=== PATIENT | female | born 1940 | race Hispanic/Latino ===

== ENCOUNTER 2020-02-22 14:58 | Inpatient (IN) | payer MEDICARE, OTHER ==
[~2020-02-22] VITALS: Ht 157.5 cm; Wt 51.1 kg
--- OUTSIDE RECORDS SUMMARY | 2020-02-22 15:01 | XMS REPORT ---
Author Author [facility] Address Unknown Phone Unavailable Care Team Providers Care Chart Reader Name Role Phone Unavailable Unavailable Payers Payer Name Policy Type Policy Number Effective Date Expiration Date Problems This patient has no known problems. Allergies, Adverse Reactions, Alerts Allergy Name Allergy Type Status Severity Reaction(s) Onset Date Inactive Date Treating Clinician Comments No Known Allergies DA Active U 2020-02-10 00:00:00 No Known Allergies DA Active U 2019-07-04 00:00:00 Medications This patient has no known medications. Encounters Start Date/Time End Date/Time Encounter Type Admission Type Attending Clinicians Care Facility Care Department Encounter ID 2019-09-17 18:35:00 2019-09-17 18:35:00 Outpatient E [facility] [id number] 2019-07-31 21:30:00 2019-07-31 21:30:00 Emergency E [facility] 7500 2019-06-21 23:47:00 2019-06-21 23:47:00 Outpatient E [facility] 7502 2019-04-03 22:44:00 2019-04-03 22:44:00 Outpatient [facility] [id number] 2019-04-04 01:06:00 2019-04-03 22:38:00 [id number] 2019-04-03 21:06:00 2019-04-03 21:06:00 Emergency E [facility] 7500 Results Test Description Test Time Test Comments Text Results Atomic Results Result Comments - XR ABDOMEN 1V (KUB) 2020-02-10 14:51:00 FAX: Melly Smallwood DO Rupert: St: PRE Name: NATALYA LUNA [facility] : 1940 Age/S: 79/F [address] [place] [address] Unit #: [id number] Loc: ALEXIS2 [place] [address] Phys: Melly Smallwood DO Acct: [id number] Dis Date: Status: PRE ER PHONE #: [phone] Exam Date: 02/10/2020 1441 FAX #: [phone] Reason: peg tube placement. with barium EXAMS: CPT CODE: [id number] XR ABDOMEN 1V (KUB) 15884 Patient: NATALYA LUNA. : 1940; Age: 79 years; Gender: Female. MR: [id number]. Ordering physician: Melly Smallwood DO. Abdomen AP. HISTORY: PEG tube placement, position checked. COMPARISON: None. FINDINGS: Single frontal view of the abdomen was obtained status post administration of contrast through placed PEG tube. PEG tube balloon overlies superior/proximal aspect of stomach. Administered contrast also noted superior/proximal aspect of stomach. No extraluminal contrast extravasation to suggest PEG tube is external to the gastric lumen. Constipation. No bowel obstruction. IMPRESSION: 1. PEG tube is within the proximal/superior aspect of stomach. 2. Constipation. SL: LYUBOV at 1457 Reported and signed by: Chris Hylton M.D. CC: Melly Smallwood DO Technologist: RT Wu(R); RT Isabel(R) Trnvard Date/Time/By: 02/10/2020 (2148) : By: [email or web address] Orig Print D/T: S: 02/10/2020 (2215) PAGE 1 Signed Report RENAL FUNCTION PANEL 2019-07-14 05:55:00 SODIUM (test code=NA) 146 MMOL/L 136-143 POTASSIUM (test code=K) 4.5 MMOL/L 3.5-5.1 CHLORIDE (test code=CL) 107 MMOL/L 98-107 CARBON DIOXIDE (test code=CO2) 28 mmol/L 24-31 GLUCOSE (test code=GLU) 143 mg/dL 70-104 BLOOD UREA NITROGEN (test code=BUN) 31.3 MG/DL 7.0-21.0 GLOMERULAR FILTRATION RATE (test code=GFR) >=60 max estimate >60 The estimated glomerular filtration rate is computed usingpatient race, age (>18), sex, and serum creatinine. If anyof the needed data elements are missing the Laboratory cannot compute an estimation of the glomerular filtration rate. CREATININE (test code=CREAT) 0.7 mg/dL 0.8-1.5 ALBUMIN (test code=ALB) 2.6 G/DL 3.5-5.0 CALCIUM (test code=CA) 9.3 mg/dL 8.8-10.2 PHOSPHOROUS (test code=PHOS) 3.6 mg/dL 2.7-4.5 CBC W/AUTO [id number] 06:18:00* Test Item Value Reference Range Comments WHITE BLOOD CELL (test code=WBC) 7.8 x10 3/uL 4.8-10.8 RED BLOOD CELL (test code=RBC) 3.47 x10 6/uL 4.20-5.40 HEMOGLOBIN (test code=HGB) 9.3 g/dL 14.5-20 HEMATOCRIT (test code=HCT) 31.1 % 37.0-47.0 MEAN CELL VOLUME (test code=MCV) 89.6 fL 81.0-99.0 MEAN CELL HGB (test code=MCH) 26.8 pg 27-31 MEAN CELL HGB CONCENTRATION (test code=MCHC) 29.9 G/DL 33-36.5 RED CELL DISTRIBUTION WIDTH (test code=RDW) 17.0 % 12.9-16.9 PLATELET COUNT (test code=PLT) 290 150-440 MEAN PLATELET VOLUME (test code=MPV) 13.0 fL 8.9-12.4 NEUTROPHIL % (test code=NT%) 61.5 % 42.2-75.2 LYMPHOCYTE % (test code=LY%) 21.3 % 20.5-51.1 MONOCYTE % (test code=MO%) 11.7 % 1.7-9.3 EOSINOPHIL % (test code=EO%) 4.6 % 0.0-7.0 BASOPHIL % (test code=BA%) 0.8 % 0-2.5 NEUTROPHIL # (test code=NT#) 4.81 x10 3/uL 1.80-7.70 LYMPHOCYTE # (test code=LY#) 1.66 x10 3/uL 1.00-4.80 MONOCYTE # (test code=MO#) 0.91 x10 3/uL 0.00-0.80 EOSINOPHIL # (test code=EO#) 0.36 x10 3/uL 0.00-0.45 BASOPHIL # (test code=BA#) 0.06 x10 3/uL 0.0-0.20 [id number] 05:54:00* Test Item Value Reference Range Comments MAGNESIUM (test code=MAG) 1.9 mg/dL 1.4-2.6 BASIC METABOLIC [id number] 05:44:00* Test Item Value Reference Range Comments SODIUM (test code=NA) 144 MMOL/L 136-143 POTASSIUM (test code=K) 4.8 MMOL/L 3.5-5.1 CHLORIDE (test code=CL) 107 MMOL/L 98-107 CARBON DIOXIDE (test code=CO2) 29 mmol/L 24-31 GLUCOSE (test code=GLU) 122 mg/dL 70-104 BLOOD UREA NITROGEN (test code=BUN) 37.5 MG/DL 7.0-21.0 GLOMERULAR FILTRATION RATE (test code=GFR) >=60 max estimate >60 The estimated glomerular filtration rate is computed usingpatient race, age (>18), sex, and serum creatinine. If anyof the needed data elements are missing the Laboratory cannot compute an estimation of the glomerular filtration rate. CREATININE (test code=CREAT) 0.7 mg/dL 0.8-1.5 CALCIUM (test code=CA) 9.1 mg/dL 8.8-10.2 LACTIC [id number] 16:52:00* Test Item Value Reference Range Comments LACTIC ACID (test code=LACT) 12.4 mg/dL 4.5-18.0 [id number] 06:18:00* Test Item Value Reference Range Comments GLUBED (test code=GLUBED) 115 MG/DL 70-105 RENAL FUNCTION [id number] 05:23:00* Test Item Value Reference Range Comments SODIUM (test code=NA) 142 MMOL/L 136-143 POTASSIUM (test code=K) 5.2 MMOL/L 3.5-5.1 CHLORIDE (test code=CL) 104 MMOL/L 98-107 CARBON DIOXIDE (test code=CO2) 27 mmol/L 24-31 GLUCOSE (test code=GLU) 128 mg/dL 70-104 BLOOD UREA NITROGEN (test code=BUN) 43.2 MG/DL 7.0-21.0 GLOMERULAR FILTRATION RATE (test code=GFR) >=60 max estimate >60 The estimated glomerular filtration rate is computed usingpatient race, age (>18), sex, and serum creatinine. If anyof the needed data elements are missing the Laboratory cannot compute an estimation of the glomerular filtration rate. CREATININE (test code=CREAT) 0.8 mg/dL 0.8-1.5 ALBUMIN (test code=ALB) 2.3 G/DL 3.5-5.0 CALCIUM (test code=CA) 9.6 mg/dL 8.8-10.2 PHOSPHOROUS (test code=PHOS) 4.4 mg/dL 2.7-4.5 [id number] 05:23:00* Test Item Value Reference Range Comments PHOSPHOROUS (test code=PHOS) 4.4 mg/dL 2.7-4.5 [id number] 05:23:00* Test Item Value Reference Range Comments MAGNESIUM (test code=MAG) 2.0 mg/dL 1.4-2.6 CBC W/AUTO [id number] 04:58:00* Test Item Value Reference Range Comments WHITE BLOOD CELL (test code=WBC) 9.5 x10 3/uL 4.8-10.8 RED BLOOD CELL (test code=RBC) 3.81 x10 6/uL 4.20-5.40 HEMOGLOBIN (test code=HGB) 10.2 g/dL 14.5-20 HEMATOCRIT (test code=HCT) 33.8 % 37.0-47.0 MEAN CELL VOLUME (test code=MCV) 88.7 fL 81.0-99.0 MEAN CELL HGB (test code=MCH) 26.8 pg 27-31 MEAN CELL HGB CONCENTRATION (test code=MCHC) 30.2 G/DL 33-36.5 RED CELL DISTRIBUTION WIDTH (test code=RDW) 16.5 % 12.9-16.9 PLATELET COUNT (test code=PLT) 279 150-440 MEAN PLATELET VOLUME (test code=MPV) 12.9 fL 8.9-12.4 NEUTROPHIL % (test code=NT%) 64.0 % 42.2-75.2 LYMPHOCYTE % (test code=LY%) 21.1 % 20.5-51.1 MONOCYTE % (test code=MO%) 11.9 % 1.7-9.3 EOSINOPHIL % (test code=EO%) 2.1 % 0.0-7.0 BASOPHIL % (test code=BA%) 0.6 % 0-2.5 NEUTROPHIL # (test code=NT#) 6.05 x10 3/uL 1.80-7.70 LYMPHOCYTE # (test code=LY#) 2.00 x10 3/uL 1.00-4.80 MONOCYTE # (test code=MO#) 1.13 x10 3/uL 0.00-0.80 EOSINOPHIL # (test code=EO#) 0.20 x10 3/uL 0.00-0.45 BASOPHIL # (test code=BA#) 0.06 x10 3/uL 0.0-0.20 - XR SWLW FUNC W/C [id number] 11:51:00Patient Name: NATALYA WATT Unit No: [id number] EXAMS: CPT CODE: [id number] XR SWLW FUNC W/C V 35492 Modified Barium Swallow 07/08/2019 11:51 AM CLINICAL INDICATION: Dysphagia COMPARISON: None available. LOCATION: W1 IMPRESSION: With the speech licensed pathologist present, the patient was observed under real-time video fluoroscopy ingesting various consistencies of barium coated food stuffs. There was no penetration or aspiration during ingestion of thin or nectar thickened liquid, nor with puree consistency. There was profound oral pharyngeal delay. A full report from speech pathology will follow. TOTAL FLUOROSCOPY TIME: 2.2 minutes at 1151 Reported and signed by: ELIZABETH CLARKE M.D. CC: Hao Jauregui MD Technologist: Shivam Davenport Time: DAP (Gy m2): Air Kerma (mGy): Trscr Dt/Tm: 06/17 (1151) by:[email or web address] Printed Date/Time: 9 (5624) Name: NATALYA WATT [facility] Phys: Hao Blevins MD [address] : 1940 Age: 79 Sex: F [place], [place] [id number] Loc: P.0732 1 Exam Date: 07/08/2019 Status: ADM IN PH: FAX: PAGE 1 Signed Report GLUBED 2019-07-07 16:12:00* Test Item Value Reference Range Comments GLUBED (test code=GLUBED) 112 MG/DL 70-105 [id number] 12:25:00* Test Item Value Reference Range Comments GLUBED (test code=GLUBED) 155 MG/DL 70-105 - US HEAD AND [id number] 08:53:00Patient Name: NATALYA WATT Unit No: [id number] EXAMS: CPT CODE: [id number] US HEAD AND NECK [address] Indication: MASS IN NECK Comparison: None LOCATION: W1 Sonographic evaluation of thyroid gland and neck soft tissues is performed using high-resolution B- mode as well as color and power Doppler technique. The right lobe of the thyroid measures 1.3 x 1.3 x 3.5 cm. The left lobe of thyroid measures 1.5 x 1.4 x 3.5 cm. The isthmus is normal measuring 2 mm. Both lobes of thyroid are normal in size, shape with heterogeneous echotexture. There is a 8 mm hypoechoic nodule along the lower pole of the right thyroid. There is a 1 cm heterogeneous hyperechoic nodule along the left side of the isthmus. There is a 1.7 x 1.3 x 1.3 cm heterogeneous hypoechoic nodule along the mid to lower pole of the left thyroid a few speckled calcifications. Several small bilateral 2 to 5 mm thick benign-appearing lymph nodes are seen. The largest lymph node in the right side measures 1.4 x 0.5 x 1.0 cm. The largest lymph node on the left side measures 1.7 x 0.3 x 0.5 cm. IMPRESSION: 1. Multiple small nodules are found within the thyroid. The largest nodule measures 1.7 cm and is seen along the lower pole of the left thyroid. Consider nonemergent fine-needle aspiration biopsy. 2. Small bilateral benign-appearing lymph nodes are present. at 0853 Reported and signed by: Marcelino Castillo MD CC: Hao Jauregui MD Technologist: Skye Mcadams Probe: Trscr Dt/Tm: 07/07/2019 (0853) by:[email or web address] Printed Date/Time: 07/07/2019 (0857) Name: DEVINALEXANATALYA [facility] Phys: Hao Blevins MD [address] : 1940 Age: 79 [address]: F [address]: [id number] Loc: P.0732 1 Exam Date: 07/07/2019 Status: ADM IN PH: FAX: PAGE 1 Signed Report [id number] 08:34:00* Test Item Value Reference Range Comments GLUBED (test code=GLUBED) 108 MG/DL 70-105 BASIC METABOLIC [id number] 07:05:00* Test Item Value Reference Range Comments SODIUM (test code=NA) 142 MMOL/L 136-143 POTASSIUM (test code=K) 4.5 MMOL/L 3.5-5.1 CHLORIDE (test code=CL) 106 MMOL/L 98-107 CARBON DIOXIDE (test code=CO2) 30 mmol/L 24-31 GLUCOSE (test code=GLU) 116 mg/dL 70-104 BLOOD UREA NITROGEN (test code=BUN) 32.5 MG/DL 7.0-21.0 GLOMERULAR FILTRATION RATE (test code=GFR) >=60 max estimate >60 The estimated glomerular filtration rate is computed usingpatient race, age (>18), sex, and serum creatinine. If anyof the needed data elements are missing the Laboratory cannot compute an estimation of the glomerular filtration rate. CREATININE (test code=CREAT) 0.5 mg/dL 0.8-1.5 CALCIUM (test code=CA) 9.3 mg/dL 8.8-10.2 [id number] 15:59:00* Test Item Value Reference Range Comments GLUBED (test code=GLUBED) 125 MG/DL 70-105 [id number] 08:08:00* Test Item Value Reference Range Comments GLUBED (test code=GLUBED) 109 MG/DL 70-105 BASIC METABOLIC [id number] 07:26:00* Test Item Value Reference Range Comments SODIUM (test code=NA) 144 MMOL/L 136-143 POTASSIUM (test code=K) 4.3 MMOL/L 3.5-5.1 CHLORIDE (test code=CL) 102 MMOL/L 98-107 CARBON DIOXIDE (test code=CO2) 33 mmol/L 24-31 GLUCOSE (test code=GLU) 104 mg/dL 70-104 BLOOD UREA NITROGEN (test code=BUN) 33.2 MG/DL 7.0-21.0 GLOMERULAR FILTRATION RATE (test code=GFR) >=60 max estimate >60 The estimated glomerular filtration rate is computed usingpatient race, age (>18), sex, and serum creatinine. If anyof the needed data elements are missing the Laboratory cannot compute an estimation of the glomerular filtration rate. CREATININE (test code=CREAT) 0.6 mg/dL 0.8-1.5 CALCIUM (test code=CA) 9.5 mg/dL 8.8-10.2 CBC W/AUTO [id number] 07:20:00* Test Item Value Reference Range Comments WHITE BLOOD CELL (test code=WBC) 9.0 x10 3/uL 4.8-10.8 RED BLOOD CELL (test code=RBC) 3.91 x10 6/uL 4.20-5.40 HEMOGLOBIN (test code=HGB) 10.4 g/dL 14.5-20 HEMATOCRIT (test code=HCT) 35.3 % 37.0-47.0 MEAN CELL VOLUME (test code=MCV) 90.3 fL 81.0-99.0 MEAN CELL HGB (test code=MCH) 26.6 pg 27-31 MEAN CELL HGB CONCENTRATION (test code=MCHC) 29.5 G/DL 33-36.5 RED CELL DISTRIBUTION WIDTH (test code=RDW) 15.7 % 12.9-16.9 PLATELET COUNT (test code=PLT) 342 150-440 MEAN PLATELET VOLUME (test code=MPV) 11.8 fL 8.9-12.4 NEUTROPHIL % (test code=NT%) 63.0 % 42.2-75.2 LYMPHOCYTE % (test code=LY%) 22.3 % 20.5-51.1 MONOCYTE % (test code=MO%) 9.5 % 1.7-9.3 EOSINOPHIL % (test code=EO%) 4.6 % 0.0-7.0 BASOPHIL % (test code=BA%) 0.4 % 0-2.5 NEUTROPHIL # (test code=NT#) 5.65 x10 3/uL 1.80-7.70 LYMPHOCYTE # (test code=LY#) 2.00 x10 3/uL 1.00-4.80 MONOCYTE # (test code=MO#) 0.85 x10 3/uL 0.00-0.80 EOSINOPHIL # (test code=EO#) 0.41 x10 3/uL 0.00-0.45 BASOPHIL # (test code=BA#) 0.04 x10 3/uL 0.0-0.20 - [facility] [id number] 15:13:00Patient Name: NATALYA WATT Unit No: [id number] EXAMS: CPT CODE: [id number] [facility] W/RX 51531 Nuclear medicine Lasix renal scan: RADIOPHARMACEUTICAL: 8.4mCi Tc-99m MAG3 IV 20mg Lasix IV at 20 minutes after MAG3 administration Comparison: CT study of 07/04/2019 is reviewed LOCATION: W1 FINDINGS: Right Kidney: There is normal radiotracer uptake, transit to the collecting system and excretion.. There is normal response to Lasix. Left Kidney: Demonstrates normal radiotracer uptake, transit to the collecting system, and excretion. There is a normal response to Lasix. The left kidney appears relatively distended compared to the right system. Split Renal Function: Right-40%, Left-60% IMPRESSION: 1. Bilateral functioning kidneys with mild bilateral hyd ronephrosis, worse than left. There is Lasix responsiveness. 2. Renal split function: Right 40%; left 60% at 1513 Reported and sig luke by: Marcelino Castillo MD CC: Virgil Carpenter MD; Hao jackson MD Technologist: G[facility]O [facility] Trscr Dt/Tm: 07/05/2019 (1513) by:[email or web address] Printed Date/Time: 07/05/2019 (1516) Name: JUAN JOSE WATT [facility] Phys: Morro Whittington MD [address] : 1940 Age: 79 Sex: F [place], [place] [address] Loc: P.0732 1 Exam Date: 07/05/2019 Status: ADM IN PH: FAX: PAGE 1 Signed Report [id number] 14:48:00* Test Item Value Reference Range Comments GLUBED (test code=GLUBED) 199 MG/DL 70-105 [id number] 04:42:00* Test Item Value Reference Range Comments PREALBUMIN (test code=PREALB) 11.0 MG/ML 15-42 BASIC METABOLIC [id number] 04:38:00* Test Item Value Reference Range Comments SODIUM (test code=NA) 148 MMOL/L 136-143 POTASSIUM (test code=K) 4.3 MMOL/L 3.5-5.1 CHLORIDE (test code=CL) 112 MMOL/L 98-107 CARBON DIOXIDE (test code=CO2) 31 mmol/L 24-31 GLUCOSE (test code=GLU) 107 mg/dL 70-104 BLOOD UREA NITROGEN (test code=BUN) 27.0 MG/DL 7.0-21.0 GLOMERULAR FILTRATION RATE (test code=GFR) >=60 max estimate >60 The estimated glomerular filtration rate is computed usingpatient race, age (>18), sex, and serum creatinine. If anyof the needed data elements are missing the Laboratory cannot compute an estimation of the glomerular filtration rate. CREATININE (test code=CREAT) 0.6 mg/dL 0.8-1.5 CALCIUM (test code=CA) 8.8 mg/dL 8.8-10.2 CBC W/AUTO [id number] 04:31:00* Test Item Value Reference Range Comments WHITE BLOOD CELL (test code=WBC) 7.9 x10 3/uL 4.8-10.8 RED BLOOD CELL (test code=RBC) 3.77 x10 6/uL 4.20-5.40 HEMOGLOBIN (test code=HGB) 10.1 g/dL 14.5-20 HEMATOCRIT (test code=HCT) 35.1 % 37.0-47.0 MEAN CELL VOLUME (test code=MCV) 93.1 fL 81.0-99.0 MEAN CELL HGB (test code=MCH) 26.8 pg 27-31 MEAN CELL HGB CONCENTRATION (test code=MCHC) 28.8 G/DL 33-36.5 RED CELL DISTRIBUTION WIDTH (test code=RDW) 15.7 % 12.9-16.9 PLATELET COUNT (test code=PLT) 353 150-440 MEAN PLATELET VOLUME (test code=MPV) 11.5 fL 8.9-12.4 NEUTROPHIL % (test code=NT%) 65.8 % 42.2-75.2 LYMPHOCYTE % (test code=LY%) 18.7 % 20.5-51.1 MONOCYTE % (test code=MO%) 9.3 % 1.7-9.3 EOSINOPHIL % (test code=EO%) 5.3 % 0.0-7.0 BASOPHIL % (test code=BA%) 0.6 % 0-2.5 NEUTROPHIL # (test code=NT#) 5.17 x10 3/uL 1.80-7.70 LYMPHOCYTE # (test code=LY#) 1.47 x10 3/uL 1.00-4.80 MONOCYTE # (test code=MO#) 0.73 x10 3/uL 0.00-0.80 EOSINOPHIL # (test code=EO#) 0.42 x10 3/uL 0.00-0.45 BASOPHIL # (test code=BA#) 0.05 x10 3/uL 0.0-0.20 - CT ABD PELVIS [id number] 12:38:00Patient Name: NATALYA WATT Unit No: [id number] EXAMS: CPT CODE: [id number] CT ABD PELVIS W/CONT 34244 CT abdomen and pelvis with contrast 07/04/2019 CLINICAL INDICATION: Abdominal pain COMPARISON: None available LOCATION: W1 TECHNIQUE: Helical CT axial imaging of the abdomen and pelvis was performed following the administration of intravenous contrast. Coronal and sagittal reformatted images were obtained. One or more of the following dose reduction techniques were used: Automated exposure control, adjustment of the mA and/or kV according to patient size, and/or utilization of iterative reconstruction technique. FINDINGS: There is substantial distention of the urinary bladder. Trace intravesicular air presumably reflects consequence of catheterization. There is associated right greater than left mild hydronephrosis and hydroureter. There is no evident obstructing pelvic mass. There is no abdominopelvic lymphadenopathy. There are 2.3 cm right and 5.0 cm left cystic ovarian lesions. There is colonic diverticulosis without evident diverticulitis. There is moderate atherosclerotic vascular disease, without evidence for thoracoabdominal aortic aneurysm. There is subsegmental atelectasis in the lingula. The liver, gallbladder, biliary tree, spleen, pancreas, adrenal glands, uterus are unremarkable. There are bilateral fat-containing inguinal hernias. There are no acute-appearing skeletal abnormalities. IMPRESSION: 1. Urinary bladder d istention with associated right greater than left mild hydronephrosis an d hydroureter. 2. Bilateral ovarian cystic lesions, for which further evaluation with ultrasound is recommended. 3 . Chronic appearing findings as discussed. Elect ronically Signed by ELIZABETH CLARKE M.D. on 07/04/20 19 at 1238 Reported and signed by: ELIZABETH CROW M.D. Name: NATALYA WATT [facility] Phys: Bety Cardoso MD [address] : 1940 Age: 79 Sex: [place] [id number] Loc: P.ERS Exam Date: 07/04/2019 Status: REG ER PH: FAX: PAGE 1 Signed Report (CONTINUED) Patient Name: NATALYA DRUMMOND Unit No: [id number] EXAMS: CPT CODE: [id number] CT ABD PELVIS W/CONT 03116 <Continued> CC: Bety Mccrary MD Technologist: Wayne Aldrich CTDI: 19.23 DLP: 1015 Trs Dt/Tm: 07/04/2019 (1238) by:[email or web address] Printed Date/Time: 07/04/2019 (1241) [facility]: Bety Cardoso MD [address] : 1940 Age: 79 Sex: F [place] [id number] Loc: P.ERS Exam Date: 07/04/2019 Status: REG ER PH: FAX: PAGE 2 Signed Report TROPONIN I [id number] 11:18:00* Test Item Value Reference Range Comments TROPONIN I RAPID (test code=TROPIRAP) 0.02 ng/mL 0.00-0.08 - The use of serial sampling and testing protocol is a recommended practice- An elevated tropnin level alone is often not sufficient for diagnosis of myocardial infarction. - XR CHEST 1 [id number] 11:06:00Patient Name: NATALYA WATT Unit No: [id number] EXAMS: CPT CODE: [id number] XR CHEST 1 V 82606 INDICATIONS: diffuse abdominal pain, increased O2 requirement COMPARISON: There are no prior studies for comparison. Location: W1 A single portable AP view of the chest demonstrates a borderline heart size with a calcified elongated aorta. The lung garibay are grossly clear. No apparent pleural effusion nor pneumothorax. The visualized bony structures are unremarkable. IMPRESSIONS: 1. No acute cardiopulmonary changes noted. at 1106 Reported and signed by: Marcelino Castillo MD CC: Bety Mccrary MD Technologist: Shivam Davenport Time: DAP (Gy m2): Air Kerma (mGy): Trscr Dt/Tm: 07/04/2019 (1106) by:[email or web address] Printed Date/Time: 07/04/2019 (1109) Name: [facility] Phys: Bety Cardoso MD [address] : 1940 Age: 79 Sex: [place] [id number] Loc: P.ERS Exam Date: 07/04/2019 Status: REG ER PH: FAX: PAGE 1 Signed Report URINALYSIS COMPLETE 2019-07-04 10:54:00* Test Item Value Reference Range Comments UA COLOR (test code=COLU) DARK YELLOW DISCRIPT YELLOW UA APPEARANCE (test code=APPU) SLIGHTLY CLOUDY DISCRIPT CLEAR UA GLUCOSE DIPSTICK (test code=DGLUU) NEGATIVE mg/dL NEGATIVE UA BILIRUBIN DIPSTICK (test code=BILU) NEGATIVE NEGATIVE UA KETONE DIPSTICK (test code=KETU) NEGATIVE mg/dL NEGATIVE UA SPECIFIC GRAVITY (test code=SGU) >=1.030 1.005-1.030 UA BLOOD DIPSTICK (test code=ARACELY) NEGATIVE NEGATIVE UA PH DIPSTICK (test code=JANELL) 6.0 5.0-9.0 UA PROTEIN DIPSTICK (test code=PROU) 30 mg/dL NEGATIVE UA UROBILINOGEN DIPSTICK (test code=URO) 0.2 mg/dL 0.2-1.0 UA NITRITE DIPSTICK (test code=PORFIRIO) NEGATIVE NEGATIVE UA LEUKOCYTE ESTERASE DIPSTICK (test code=LEUU) NEGATIVE NEGATIVE UA [id number] 10:54:00* Test Item Value Reference Range Comments UA WBC (test code=WBCU) NONE SEEN #WBC/HPF 0-2 UA RBC (test code=RBCU) NONE SEEN #RBC/HPF 0-2 UA BACTERIA (test code=BACU) OCCASIONAL /HPF NONE-TRACE UA SQUAMOUS CELLS (test code=SQU) TRACE /LPF NONE-TRACE URINALYSIS [id number] 10:51:00* Test Item Value Reference Range Comments UA COLOR (test code=COLU) DARK YELLOW DISCRIPT YELLOW UA APPEARANCE (test code=APPU) SLIGHTLY CLOUDY DISCRIPT CLEAR UA GLUCOSE DIPSTICK (test code=DGLUU) NEGATIVE mg/dL NEGATIVE UA BILIRUBIN DIPSTICK (test code=BILU) NEGATIVE NEGATIVE UA KETONE DIPSTICK (test code=KETU) NEGATIVE mg/dL NEGATIVE UA SPECIFIC GRAVITY (test code=SGU) >=1.030 1.005-1.030 UA BLOOD DIPSTICK (test code=ARACLEY) NEGATIVE NEGATIVE UA PH DIPSTICK (test code=JANELL) 6.0 5.0-9.0 UA PROTEIN DIPSTICK (test code=PROU) 30 mg/dL NEGATIVE UA UROBILINOGEN DIPSTICK (test code=URO) 0.2 mg/dL 0.2-1.0 UA NITRITE DIPSTICK (test code=PORFIRIO) NEGATIVE NEGATIVE UA LEUKOCYTE ESTERASE DIPSTICK (test code=LEUU) NEGATIVE NEGATIVE UA [id number] 10:51:00* Test Item Value Reference Range Comments UA WBC (test code=WBCU) #WBC/HPF 0-2 UA RBC (test code=RBCU) #RBC/HPF 0-2 UA BACTERIA (test code=BACU) /HPF NONE-TRACE UA SQUAMOUS CELLS (test code=SQU) /LPF NONE-TRACE URINALYSIS [id number] 10:51:00* Test Item Value Reference Range Comments UA COLOR (test code=COLU) DARK YELLOW DISCRIPT YELLOW UA APPEARANCE (test code=APPU) SLIGHTLY CLOUDY DISCRIPT CLEAR UA GLUCOSE DIPSTICK (test code=DGLUU) NEGATIVE mg/dL NEGATIVE UA BILIRUBIN DIPSTICK (test code=BILU) NEGATIVE NEGATIVE UA KETONE DIPSTICK (test code=KETU) NEGATIVE mg/dL NEGATIVE UA SPECIFIC GRAVITY (test code=SGU) >=1.030 1.005-1.030 UA BLOOD DIPSTICK (test code=ARACELY) NEGATIVE NEGATIVE UA PH DIPSTICK (test code=JANELL) 6.0 5.0-9.0 UA PROTEIN DIPSTICK (test code=PROU) 30 mg/dL NEGATIVE UA UROBILINOGEN DIPSTICK (test code=URO) 0.2 mg/dL 0.2-1.0 UA NITRITE DIPSTICK (test code=PORFIRIO) NEGATIVE NEGATIVE UA LEUKOCYTE ESTERASE DIPSTICK (test code=LEUU) NEGATIVE NEGATIVE UA [id number] 10:51:00* Test Item Value Reference Range Comments UA WBC (test code=WBCU) #WBC/HPF 0-2 UA RBC (test code=RBCU) #RBC/HPF 0-2 UA BACTERIA (test code=BACU) /HPF NONE-TRACE UA SQUAMOUS CELLS (test code=SQU) /LPF NONE-TRACE PROTHROMBIN [id number] 10:09:00* Test Item Value Reference Range Comments PROTHROMBIN TIME PATIENT (test code=PTP) 12.8 SECONDS 10.3-12.9 INTERNATIONAL NORMAL RATIO (test code=INR) 1.10 INR UNIT 0.9-1.11 The INR is useful only for monitoring anticoagulant therapy.It may be unreliable in the initial phase of antigoagulationand in unstable patients. Indication for Anticoagulation Recommended INR 1. Prevention of venous thomboembolism 2.0-3.0in high-risk patients; treatment of venousthrombosis and pulmonary embolism aftera course of heparin; prevention of systemicembolism in a variety of conditions, including atrial fibrillation and prothetic tissue heart valves, 2. Prosthetic mechanical heart valves; 2.5-3.5recurrent systemic embolism. COMPREHENSIVE METABOLIC [id number] 10:09:00* Test Item Value Reference Range Comments SODIUM (test code=NA) 149 MMOL/L 136-143 POTASSIUM (test code=K) 4.0 MMOL/L 3.5-5.1 CHLORIDE (test code=CL) 110 MMOL/L 98-107 CARBON DIOXIDE (test code=CO2) 31 mmol/L 24-31 GLUCOSE (test code=GLU) 123 mg/dL 70-104 BLOOD UREA NITROGEN (test code=BUN) 34.1 MG/DL 7.0-21.0 GLOMERULAR FILTRATION RATE (test code=GFR) >=60 max estimate >60 The estimated glomerular filtration rate is computed usingpatient race, age (>18), sex, and serum creatinine. If anyof the needed data elements are missing the Laboratory cannot compute an estimation of the glomerular filtration rate. CREATININE (test code=CREAT) 0.9 mg/dL 0.8-1.5 TOTAL PROTEIN (test code=PROT) 8.1 g/dL 6.3-8.3 ALBUMIN (test code=ALB) 3.1 G/DL 3.5-5.0 CALCIUM (test code=CA) 9.5 mg/dL 8.8-10.2 BILIRUBIN TOTAL (test code=BILT) 0.5 mg/dL 0.2-1.0 SGOT/AST (test code=AST) 18 IU/L 10-34 SGPT/ALT (test code=ALT) 9 U/L 10-36 ALKALINE PHOSPHATASE (test code=ALKP) 99 U/L 32-104 [id number] 10:09:00* Test Item Value Reference Range Comments LIPASE (test code=LIP) 33 U/L 0-190 CBC W/AUTO [id number] 10:01:00* Test Item Value Reference Range Comments WHITE BLOOD CELL (test code=WBC) 9.1 x10 3/uL 4.8-10.8 RED BLOOD CELL (test code=RBC) 4.38 x10 6/uL 4.20-5.40 HEMOGLOBIN (test code=HGB) 11.6 g/dL 14.5-20 HEMATOCRIT (test code=HCT) 39.7 % 37.0-47.0 MEAN CELL VOLUME (test code=MCV) 90.6 fL 81.0-99.0 MEAN CELL HGB (test code=MCH) 26.5 pg 27-31 MEAN CELL HGB CONCENTRATION (test code=MCHC) 29.2 G/DL 33-36.5 RED CELL DISTRIBUTION WIDTH (test code=RDW) 16.0 % 12.9-16.9 PLATELET COUNT (test code=PLT) 437 150-440 MEAN PLATELET VOLUME (test code=MPV) 11.6 fL 8.9-12.4 NEUTROPHIL % (test code=NT%) 71.6 % 42.2-75.2 LYMPHOCYTE % (test code=LY%) 15.2 % 20.5-51.1 MONOCYTE % (test code=MO%) 9.2 % 1.7-9.3 EOSINOPHIL % (test code=EO%) 2.4 % 0.0-7.0 BASOPHIL % (test code=BA%) 1.1 % 0-2.5 NEUTROPHIL # (test code=NT#) 6.52 x10 3/uL 1.80-7.70 LYMPHOCYTE # (test code=LY#) 1.39 x10 3/uL 1.00-4.80 MONOCYTE # (test code=MO#) 0.84 x10 3/uL 0.00-0.80 EOSINOPHIL # (test code=EO#) 0.22 x10 3/uL 0.00-0.45 BASOPHIL # (test code=BA#) 0.10 x10 3/uL 0.0-0.20 CHEMISTRY 8 [id number] 09:48:00* Test Item Value Reference Range Comments SODIUM POC (test code=NAP) MMOL/L 135-146 POTASSIUM POC (test code=KP) MMOL/L 3.5-4.9 CHLORIDE POC (test code=CLP) MMOL/L 98-109 CO2 POC (test code=CO2P) mmol/L 24-29 IONIZED CALCIUM POC (test code=CAIP) mmol/L 1.12-1.32 GLUCOSE POC (test code=GLUP) mg/dL 70-105 BUN POC (test code=BUNP) MG/DL 8-26 CREATININE POC (test code=CREATP) mg/dL 0.6-1.3 GLOMERULAR FILTRATION RATE POC (test code=GFRP) 60 39-90 CHEMISTRY 8 [id number] 09:48:00* Test Item Value Reference Range Comments SODIUM POC (test code=NAP) 152 MMOL/L 135-146 POTASSIUM POC (test code=KP) 3.9 MMOL/L 3.5-4.9 CHLORIDE POC (test code=CLP) 109 MMOL/L 98-109 CO2 POC (test code=CO2P) 28 mmol/L 24-29 IONIZED CALCIUM POC (test code=CAIP) 1.19 mmol/L 1.12-1.32 GLUCOSE POC (test code=GLUP) 105 mg/dL 70-105 BUN POC (test code=BUNP) 34 MG/DL 8-26 CREATININE POC (test code=CREATP) 0.9 mg/dL 0.6-1.3 GLOMERULAR FILTRATION RATE POC (test code=GFRP) 60 39-90
[2020-02-22] MEDS ORDERED: SODIUM CHLORIDE 0.9% 1000ML 1,000 ML IV STA (15:19)
--- NOTE | 2020-02-22 15:45 | NUR ---
incontinence care provided for patient
[2020-02-22 15:52] LABS: BASOPHILS # (AUTO) 0.1 (0.0-0.1); BASOPHILS % 0.7 % (0.0-1.0); EOSINOPHILS # (AUTO) 0.2 (0.0-0.4); HEMATOCRIT 49.8 % (34.2-44.1); HEMOGLOBIN 15.1 g/dL (12.0-16.0); LYMPHOCYTES # (AUTO) 2.3 (1.0-3.2); LYMPHOCYTES % 21.7 % (18.0-39.1); MEAN CORPUSCULAR HEMOGLOBIN 30.2 pg (28-32); MEAN CORPUSCULAR HGB CONC 30.3 g/dL (31-35); MEAN CORPUSCULAR VOLUME 99.6 fL (81-99); MONOCYTES % 9.7 % (4.4-11.3); NEUTROPHILS % 65.3 % (38.7-80.0); PLATELET COUNT 187 x10e3/uL (140-360); RED CELL DISTRIBUTION WIDTH 15.5 % (11.7-14.4)
[2020-02-22 15:54] LABS: BILIRUBIN,URINE NEGATIVE (NEGATIVE); CLARITY,URINE SL CLOUDY (CLEAR); COLOR,URINE YELLOW (YELLOW); KETONES,URINE NEGATIVE (NEGATIVE); LEUKOCYTE ESTERASE ,URINE SMALL (NEGATIVE); NITRITE,URINE NEGATIVE (NEGATIVE); PROTEIN,URINE DIPSTICK TRACE (NEGATIVE); URINE UROBILINOGEN 0.2 mg/dL (0.2 - 1)
[2020-02-22 15:58] LABS: INR 0.97; PROTHROMBIN TIME 13.5 seconds (11.9-14.5)
[2020-02-22 15:59] LABS: PARTIAL THROMBOPLASTIN TIME 28.1 seconds (23.8-35.5)
[2020-02-22 16:07] LABS: BACTERIA,URINE MODERATE /HPF
[2020-02-22 16:08] LABS: AMORPHOUS SEDIMENT,URINE MANY (FEW)
[2020-02-22 16:09] LABS: ALBUMIN 3.9 g/dL (3.5-5.0); ALBUMIN/GLOBULIN RATIO 1.1 (0.8-2.0); ANION GAP 21.1 mmol/L (8-16); CALCIUM 10.4 mg/dL (8.4-10.2); MAGNESIUM 2.5 MG/DL (1.3-2.1); POTASSIUM 4.1 mmol/L (3.5-5.1)
[2020-02-22 16:15] LABS: CREATINE KINASE MB 2.3 ng/mL (0-5.0)
[2020-02-22] MEDS ORDERED: SODIUM CHLORIDE 0.9% 1000ML 1,000 ML IV SCH (16:30)
--- NOTE | 2020-02-22 16:34 | Diagnostic Imaging Report ---
EXAMINATION: CHEST SINGLE (PORTABLE) INDICATION: Altered mental status COMPARISON: None FINDINGS: LINES/TUBES:EKG leads overlie the chest. LUNGS:The lungs are hyperinflated. Bilateral emphysematous changes. No focal consolidation or pulmonary edema. PLEURA:No pleural effusion or pneumothorax. MEDIASTINUM:The cardiomediastinal silhouette appears normal in size and shape. Atherosclerotic calcifications of the thoracic aorta. BONES/SOFT TISSUES:No acute osseous injury. ABDOMEN:No free air under the diaphragm. IMPRESSION: Hyperinflated lungs. No focal pneumonia or pulmonary edema. Signed by: Newton Alfaro MD on 02/22/2020 4:31 PM
--- NOTE | 2020-02-22 16:34 | Diagnostic Imaging Report ---
Examination: CT head without contrast Clinical Indication: Confusion. Altered mental status. Technique: Transaxial noncontrast images from the skull base through the vertex were obtained. Sagittal and coronal reformatted images were done. Dose modulation, iterative reconstruction, and/or weight based adjustment of the mA/kV was utilized to reduce the radiation dose to as low as reasonably achievable. Comparison: None. Findings: Scalp: No abnormalities. Bones: Intact. No fractures. No blastic or lytic lesions. Brain sulci: Mild volume loss for patient's age. Ventricle: No hydrocephalus. Extra-axial space: No acute abnormality. A coil mass is identified in the region of the anterior indicating artery complex. Parenchyma: There are patchy areas of low-attenuation within subcortical and periventricular white matter, nonspecific, but could represent microvascular ischemic disease. Cortical-based areas of encephalomalacia are identified in the right superior and middle frontal gyri, left genu of the corpus callosum and left frontal lobe. No masses, hemorrhage, or acute or chronic cortical based vascular insults. Suprasellar region: No abnormalities. Craniocervical junction: The foramen magnum is patent. No Chiari one malformation. Incidental findings: Atherosclerotic calcification of the cavernous and supraclinoid internal carotid arteries. Impression: 1. No acute intracranial abnormality. 2. Chronic vascular insults of the bilateral frontal lobes and left genuine corpus callosum. Chronic microvascular ischemic change. 3. Mild volume loss. 4. 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 Signed by: Dr. Brooklyn Renteria M.D. on 02/22/2020 4:31 PM
[2020-02-22] MEDS ORDERED: CEFTRIAXONE SOD 1 GM/NS 50 ML 50 ML IV SCH (17:00)
[2020-02-22] MEDS ORDERED: AMANTADINE100 M1 PO (17:24)
[2020-02-22] MEDS ORDERED: HYDROCORTISONE28 GM RC (17:25)
[2020-02-22] MEDS ORDERED: ASPIR 8181 MG PO (17:25)
[2020-02-22] MEDS ORDERED: ATORVASTATIN CA20 MG PO (17:26)
[2020-02-22] MEDS ORDERED: PEPCID20 MG PO (17:27)
[2020-02-22] MEDS ORDERED: DILTIAZEM HCL30 MG PO (17:27)
[2020-02-22] MEDS ORDERED: FERROUS SULFAT325 MG PO (17:28)
[2020-02-22] MEDS ORDERED: GLYCOLAX119 GM PO (17:29)
[2020-02-22] MEDS ORDERED: LISINOPRIL10 MG PO (17:31)
[2020-02-22] MEDS ORDERED: LIDOCAINE1 EA SUBD (17:31)
[2020-02-22] MEDS ORDERED: MIRTAZAPINE15 MG PO (17:32)
[2020-02-22] MEDS ORDERED: NAMENDA5 MG PO (17:33)
[2020-02-22] MEDS ORDERED: VITAMIN D34000 UNIT PO (17:34)
--- NOTE | 2020-02-22 18:32 | NUR ---
Received patient from ER via stretcher. No s/s of acute distress noted. Telemetry #13 SR. Side rails upx2, call light within reach, bed alarm on.
[2020-02-22 19:00] VITALS: BP 91/58
--- NOTE | 2020-02-22 19:05 | NUR ---
Report given to oncoming nurse of patient's status.
[2020-02-22 19:47] VITALS: BP 91/58
--- NOTE | 2020-02-22 22:14 | NUR ---
History (coverage for Dr Orellana) [id number]
[2020-02-22] MEDS ORDERED: THIAMINE HCL INJ 100 MG/ML 2ML VIAL IV ONE (22:15)
[2020-02-22] MEDS ORDERED: POLYETHYLENE GLYCOL 3350 17 GM PACK PO PRN (22:30)
[2020-02-22] MEDS ORDERED: HEPARIN SOD (PORCINE) 5,000 UNIT/ML VIAL SC ONE (22:30)
[2020-02-22] MEDS: CEFEPIME 1GM/NS 0.9% 50 ML 50 ML IV SCH (22:53)
[2020-02-22] MEDS: DEXTROSE 5% 1,000 ML IV SCH (22:53)
--- NOTE | 2020-02-22 22:59 | History and Physical ---
PRIMARY CARE DOCTOR: Wayne Orellana MD. This is coverage for Dr. Orellana. HISTORY OF PRESENT ILLNESS: Ms. Strauss is a pleasant 79-year-old female with altered mental status. The patient well known to Dr. Orellana, on outside has been managing the patient. The patient was reported to have more lethargy today. The history is limited due to the patient's confusion. The patient was having low blood pressures on the outside, but when brought to our emergency room, was already having 91/60 blood pressure. The patient with 93% oxygen saturation on room air without any known preceding respiratory disease. Labs performed that eventually demonstrated 162 sodium, 3.0 creatinine, hypercalcemia 10.4. Urinalysis with 6 to 10 white cells. Chest x-ray with patchy infiltrates/opacities, interstitial that were mild, also excess air inside the stomach bubble without tripp abdominal process. The patient was elected for hospitalization. PAST MEDICAL HISTORY: Hypertension, COPD, CVA, Parkinson's disease, nephrolithiasis, GERD, and hyperlipidemia. MEDICATIONS: Medication list reviewed per the chart record. Include aspirin, atorvastatin, diltiazem, famotidine, iron, lisinopril, mirtazapine, amantadine, vitamin D3, hydrocortisone ointment, lidocaine ointment, memantine, and MiraLAX. ALLERGIES: NO KNOWN DRUG ALLERGIES. SOCIAL HISTORY: From a best attempted history, there is no smoking, no drinking, no drugs reported. FAMILY HISTORY: Noncontributory. REVIEW OF SYSTEMS: Generally, we cannot get any reliable review of systems as the patient is altered. OBJECTIVE: VITAL SIGNS: 98.1 Fahrenheit, 85 heart rate, lowest blood pressure was 90/50, 93% on room air. GENERAL: Now more awake. States a few words, but is not focused on subject matter. Confused. HEENT: Normocephalic and atraumatic. NECK: Supple. Throat midline. LUNGS: Bilateral air entry, limited. CARDIOVASCULAR: S1, S2. No murmurs, rubs, or gallops. ABDOMEN: Soft and nontender. EXTREMITIES: No clubbing. No cyanosis. There is no edema. INTEGUMENT: No rash or purpura. Some small venous stasis changes. LABORATORY DATA: 10.7 white count, 50 hematocrit, 187 platelets. 162 sodium, 4.1 potassium, 28 bicarbonate, 102 BUN, 3.0 creatinine. Calcium 10.4. Magnesium 2.5. DICTATION ENDS HERE PLEASE SEE FOLLOW UP NOTE FOR COMPLETE HISTORY / PHYSICAL. THIS WAS TRUNCATED MD ALEXANDRIA Aldana/TERESA /[id number] ASHU
--- NOTE | 2020-02-22 23:05 | History and Physical ---
Carlos Eduardo M MD ALEXANDRIA Aranda/TERESA /[id number]
--- NOTE | 2020-02-22 23:19 | History and Physical ---
PRIMARY CARE DOCTOR: Wayne Orellana MD. This is coverage for Dr. Orellana. HISTORY OF PRESENT ILLNESS: Ms. Strauss is a pleasant 79-year-old female with altered mental status. The patient well known to Dr. Orellana, on outside has been managing the patient. The patient was reported to have more lethargy today. The history is limited due to the patient's confusion. The patient was having low blood pressures on the outside, but when brought to our emergency room, was already having 91/60 blood pressure. The patient with 93% oxygen saturation on room air without any known preceding respiratory disease. Labs performed that eventually demonstrated 162 sodium, 3.0 creatinine, hypercalcemia 10.4. Urinalysis with 6 to 10 white cells. Chest x-ray with patchy infiltrates/opacities, interstitial that were mild, also excess air inside the stomach bubble without tripp abdominal process. The patient was elected for hospitalization. PAST MEDICAL HISTORY: Hypertension, COPD, CVA, Parkinson's disease, nephrolithiasis, GERD, and hyperlipidemia. MEDICATIONS: Medication list reviewed per the chart record. Include aspirin, atorvastatin, diltiazem, famotidine, iron, lisinopril, mirtazapine, amantadine, vitamin D3, hydrocortisone ointment, lidocaine ointment, memantine, and MiraLAX. ALLERGIES: NO KNOWN DRUG ALLERGIES. SOCIAL HISTORY: From a best attempted history, there is no smoking, no drinking, no drugs reported. FAMILY HISTORY: Noncontributory. REVIEW OF SYSTEMS: Generally, we cannot get any reliable review of systems as the patient is altered. OBJECTIVE: VITAL SIGNS: 98.1 Fahrenheit, 85 heart rate, lowest blood pressure was 90/50, 93% on room air. GENERAL: Now more awake. States a few words, but is not focused on subject matter. Confused. HEENT: Normocephalic and atraumatic. NECK: Supple. Throat midline. LUNGS: Bilateral air entry, limited. CARDIOVASCULAR: S1, S2. No murmurs, rubs, or gallops. ABDOMEN: Soft and nontender. EXTREMITIES: No clubbing. No cyanosis. There is no edema. INTEGUMENT: No rash or purpura. Some small venous stasis changes. LABORATORY DATA: 10.7 white count, 50 hematocrit, 187 platelets. 162 sodium, 4.1 potassium, 28 bicarbonate, 102 BUN, 3.0 creatinine. Calcium 10.4. Magnesium 2.5. CONTINUATION: This is continuation of history of present illness. All summarized in short form, it was truncated after dictating the entirety of this history of present illness. BRIEF RECAP HISTORY: Ms. Strauss is a 79-year-old female with altered mental status. Creatinine was 3.0. Some mild pyuria. Chest x-ray was mild patchy infiltrates and gas bubble slightly enlarged. Oxygen saturation 93%. PAST MEDICAL HISTORY: The patient with past medical history as shown per February 22, 2020, ER physician traced. ASSESSMENT PLAN: 1. Sepsis, urinary tract infection. 2. Sepsis, pneumonia. 3. Critical hypernatremia. 4. Acute kidney failure. 5. Dehydration. 6. Parkinson's disorder. 7. Possible chronic obstructive pulmonary disease. 8. History of cerebrovascular accident. 9. Hypertension. 10. Gastroesophageal reflux disease. 11. Hyperlipidemia. 12. Encephalopathy, toxic/metabolic, baseline dementia. IV fluids. Empiric antibiotics. Repeat chest x-ray tomorrow. Followup electrolytes closely. Followup and consider diet tomorrow based on her mentation, which may start to slowly improve. Followup cultures. Thank you, Dr. Orellana, for allowing me a chance to participate in care Ms. Strauss. Please call for questions. MD ALEXANDRIA Aldana/TERESA /[id number] ASHU
--- NOTE | 2020-02-22 23:29 | Consultation ---
DATE OF CONSULTATION: Nephrology Consultation Note REASON FOR CONSULTATION: Acute kidney injury and dehydration. HISTORY OF PRESENT ILLNESS: Information being obtained on this patient is very minimal as the patient has baseline dementia and I do not have any record to go based on. According to my understanding, the patient was admitted as she was found to be severely dehydrated. She does have a history of dementia. She is also being treated for underlying pneumonia, on IV antibiotics. Information is very limited at this time. REVIEW OF SYSTEMS: Pertinent positive was dehydration. Unable to obtain the rest of 14-point review of systems as the patient has baseline dementia. ALLERGIES: NO KNOWN DRUG ALLERGIES. HOME MEDICATIONS: Documented are aspirin, atorvastatin, diltiazem, Pepcid, iron, lisinopril, Namenda, mirtazapine, MiraLax, amantadine, cholecalciferol, hydrocortisone cream, lidocaine patch. PAST MEDICAL HISTORY: Dementia, hypertension, acid reflux, hyperlipidemia. PAST SURGICAL HISTORY: Unable to obtain. FAMILY HISTORY: Unable to obtain. SOCIAL HISTORY: Unable to obtain. PHYSICAL EXAMINATION: VITAL SIGNS: Temperature is 97.7, pulse 85, respiratory rate is 18, blood pressure currently 91/58, on admission was 90/50, pulse ox is 93% on room air. GENERAL: She has baseline dementia. She was awake and alert on examination. HEENT: Head; normocephalic, atraumatic. Eyes; pupils are equal, round, and reactive to light bilaterally. Extraocular movements are intact. Throat; no evidence of erythema or exudates in the posterior pharynx. Has poor dentition. PULMONARY: Clear to auscultation bilaterally. No wheezing, rales, or rhonchi. No crackles appreciated. CARDIOVASCULAR: Positive S1, S2. No murmurs, rubs, or gallops appreciated. GI: Abdomen is soft, nondistended, nontender to palpation. Bowel sounds present. MUSCULOSKELETAL: Unable to assess. NEUROLOGICAL: Unable to assess. SKIN: Intact, but has skin tenting, dehydrated on exam. EXTREMITIES: No edema. Good range of motion throughout. LABORATORY DATA: White count was 10.7, hemoglobin 15, hematocrit was 49.8, platelets of 187, hematocrit was 49.8. Coagulation; PT 13, INR 0.97, PTT 28. Chemistry; sodium 162, potassium 4.1, chloride 117, bicarb 28, anion gap of 21, BUN was 102, creatinine was 3. There was no other record of creatinine here at this hospital. Glucose 146, calcium is 10.4, magnesium is 2.5. LFTs within normal range. CK is 34, CK-MB 2.3, troponin 0.0221. BNP 31. Total protein 7.6, albumin 3.9. Urinalysis negative. MICROBIOLOGY: Blood and urine cultures are pending. IMAGING STUDIES: CT brain, no acute intracranial abnormality. There is some chronic vascular insult of the bilateral frontal lobes and left genu of the corpus callosum. Chest x-ray, hyperinflated lungs. No focal pneumonia or pulmonary edema. IMPRESSION: 1. Severe dehydration. 2. Hypernatremia secondary to dehydration. 3. Acute kidney injury with elevated BUN secondary to dehydration. PLAN: At this time, the patient had received normal saline boluses in the ER. We will start on D5W at 100 mL/h, get a repeat sodium level in the morning. I suspect that her sodium will take a little bit longer to correct as the patient looks severely dehydrated on exam. Her other electrolytes were stable including her potassium. I do not have a baseline creatinine in the past, so I do not know if this patient has underlying chronic kidney disease. Also, I am not able to obtain that information from the patient as she has baseline dementia. I did stop the lisinopril as currently not indicated with her acute kidney injury. I reviewed the medications currently on the MAR and they are currently renally dosed appropriately. She is on IV antibiotics with doxycycline and cefepime, which we will monitor very closely. We will get repeat labs in the morning. Monitor the sodium very closely. Once again, thank you so much for this consultation. We will continue to follow with you. MD NOREEN Quintana/CHADL /[id number]
[2020-02-22] MEDS: DOXYCYCLINE 100MG/NS 100ML 100 ML IV SCH (23:33)
[2020-02-23] VITALS (7 sets, daily range): BP systolic 106–144; BP diastolic 59–72
[2020-02-23 05:27] LABS: BASOPHILS # (AUTO) 0.1 (0.0-0.1); BASOPHILS % 0.5 % (0.0-1.0); EOSINOPHILS # (AUTO) 0.3 (0.0-0.4); HEMATOCRIT 42.2 % (34.2-44.1); HEMOGLOBIN 12.9 g/dL (12.0-16.0); LYMPHOCYTES # (AUTO) 2.5 (1.0-3.2); LYMPHOCYTES % 22.3 % (18.0-39.1); MEAN CORPUSCULAR HEMOGLOBIN 30.4 pg (28-32); MEAN CORPUSCULAR HGB CONC 30.6 g/dL (31-35); MEAN CORPUSCULAR VOLUME 99.5 fL (81-99); MONOCYTES # (AUTO) 1.1 (0.2-0.8); MONOCYTES % 9.9 % (4.4-11.3); NEUTROPHILS # (AUTO) 7.1 (2.1-6.9); PLATELET COUNT 153 x10e3/uL (140-360); RED BLOOD COUNT 4.24 x10e6/uL (3.6-5.1); RED CELL DISTRIBUTION WIDTH 15.3 % (11.7-14.4)
[2020-02-23] MEDS: ASPIRIN 81 MG CHEW TAB PO SCH (05:43)
[2020-02-23] MEDS: DILTIAZEM HCL 30 MG TAB PO SCH ×3 (05:43→22:00)
[2020-02-23 05:48] LABS: MAGNESIUM 2.1 MG/DL (1.3-2.1)
[2020-02-23 06:15] LABS: PHOSPHORUS 3.1 MG/DL (2.3-4.7)
[2020-02-23 06:46] LABS: CREATINE KINASE MB 2.3 ng/mL (0-5.0)
--- NOTE | 2020-02-23 07:02 | Diagnostic Imaging Report ---
EXAMINATION: CHEST SINGLE (PORTABLE) INDICATION: Pneumonia. COMPARISON: Chest radiograph 02/22/2020. FINDINGS: TUBES and LINES: None. LUNGS: Hyperinflated lungs. There is no evidence of pneumonia or pulmonary edema. PLEURA: No pleural effusion or pneumothorax. HEART AND MEDIASTINUM: The cardiomediastinal silhouette is unremarkable. There are atherosclerotic calcifications within the aorta. BONES AND SOFT TISSUES: No acute osseous abnormality. Diffuse osteopenia. UPPER ABDOMEN: No free air under the diaphragm. IMPRESSION: Emphysematous lungs without evidence of pneumonia. Signed by: Dr. Tony Rizvi MD on 02/23/2020 6:58 AM
[2020-02-23 07:20] LABS: ALBUMIN 3.1 g/dL (3.5-5.0); ANION GAP 12.5 mmol/L (8-16); CALCIUM 9.1 mg/dL (8.4-10.2); CHOL/HDL RATIO 2.8 (3.0-3.6); CREATININE, SERUM 2.08 mg/dL (0.57-1.11); POTASSIUM 3.5 mmol/L (3.5-5.1)
[2020-02-23] MEDS: MEMANTINE 10 MG TAB PO SCH (08:48)
[2020-02-23] MEDS: FERROUS SULFATE 325 MG TAB PO SCH ×2 (08:48→16:20)
[2020-02-23] MEDS: FAMOTIDINE 20 MG TAB PO SCH ×2 (08:48→16:20)
[2020-02-23] MEDS ORDERED: MIRTAZAPINE 15 MG TAB PO SCH (09:00)
[2020-02-23] MEDS ORDERED: LISINOPRIL 10 MG TAB PO SCH (09:00)
[2020-02-23] MEDS: HEPARIN SOD (PORCINE) 5,000 UNIT/ML VIAL SC SCH ×2 (09:59→22:00)
--- NOTE | 2020-02-23 10:00 | NUR ---
WOUND CARE NURSE AT BEDSIDE TO DO ASSESSMENT.
[2020-02-23] MEDS: DEXTROSE 5% 1,000 ML IV SCH ×2 (10:06→22:47)
[2020-02-23] MEDS: DOXYCYCLINE 100MG/NS 100ML 100 ML IV SCH ×2 (10:15→23:15)
--- NOTE | 2020-02-23 13:32 | NUR ---
WOUND CARE CONSULT FOR 79 YO FEMALE HX OF_RENAL FAILURE, DEHYDRATION LINDA 10 ON MODERATE PUP STATUS AND INTERVENTIONS AND ALTERNATING PRESSURE MATTRESS LABS: WBC-11.02 HGB_12.9 GLUCOSE-116 SKIN ASSESSMENT COMPLETE PATIENT PRESENTS WITH SACRAL STAGE 1 ULCERATION RECOMMENDATIONS: NURSING TO CONTINUE TO MAINTAIN MODERATE PUP STATUS AND INTERVENTIONS AND ALTERNATING PRESSURE MATTRESS NURSING TO CONTINUE TO ASSIST PATIENT OUT OF BED FOR MEALS AND MUCH TOLERATED NURSING TO CONTINUE TO ASSIST PATIENT NEEDED WITH MEALS AND NUTRITIONAL SUPPLEMENTS TO ENSURE PROPER REQUIREMENTS FOR HEALING NURSING TO CONTINUE TO OFFLOAD FEET AND HEELS NEEDED WITH PILLOW SUSPENSION WHEN IN BED NURSING TO CLEAN SACRAL WITH NONIRRITATING BALLOON SELLER/SOAP DAILY AND APPLY VENELEX OINTMENT AND ALLEVYN FOAM DRESSING Addendum: 02/23/20 at 1336 by Kwadwo Rockwell RN Amended: Links added.
[2020-02-23 15:11] LABS: CREATINE KINASE MB 2.5 ng/mL (0-5.0)
--- NOTE | 2020-02-23 16:48 | NUR ---
Nutrition Screen Note RD Recommendation for Physician: -Continue current diet as ordered -If PO intake <50% of meals, offer Ensure Plan of Care: RD following, monitoring for tolerance and adequacy Nutrition reason for involvement: Nutrition Risk Trigger MST 4 Primary Diagnose(s): confusion, dehydration, hypernatremia, renal failure, UTI PMH: HTN, COPD, CVA, Parkinsons disorder, nephrolithiasis, GERD, HLD, dementia Ht: 62 in Wt:121 lb BMI: 22.1 kg/m2 IBW:[address] Assessment: (02/23/20) Chart reviewed. Labs and meds reviewed. Pt is a 79 year old female admitted with confusion, dehydration, hypernatremia, renal failure, UTI. Unable to obtain information from patient due to altered mental status. It is recorded that pt consumed 50% of breakfast this morning. No previous weight history in chart. If PO intake is <50% of meals, recommend to offer Ensure. Will continue to monitor. Current Diet: cardiac Malnutrition Evaluation (02/23/20) Unable to assess at this time. Will re-evaluate at follow-up as appropriate. Diet Education Needs Assessment: Diet education not indicated. Nutrition Care Level: low Signed: Shefali Paulino, RD, LD
--- NOTE | 2020-02-23 17:12 | NUR ---
NO CHANGE IN CONDITION. RESP EVEN NO DISTRESS. REPOSITION Q 2HR.
[2020-02-23] MEDS: ATORVASTATIN 20 MG TAB PO SCH (22:00)
[2020-02-23] MEDS: MIRTAZAPINE 15 MG TAB PO SCH (22:00)
--- NOTE | 2020-02-23 22:12 | Progress Note ---
DATE: Nephrology Progress Note SUBJECTIVE: The patient is still at baseline. She seems to be more awake and alert today. She was very dehydrated yesterday. Her sodium is downtrending now to 157. OBJECTIVE: VITAL SIGNS: She is afebrile, normotensive respiratory rate is good. GENERAL: Not in acute distress, alert and oriented x1 at baseline. HEENT: Head is normocephalic and atraumatic. Eyes; pupils are equal, round, and reactive to light bilaterally. Extraocular movements are intact. Throat; no evidence of erythema or exudates in the posterior pharynx. She has poor dentition. NECK: Supple. Good range of motion. PULMONARY: Clear to auscultation bilaterally. No wheezing, rales, or rhonchi. No crackles appreciated. CARDIOVASCULAR: Positive S1 and S2. No murmurs, rubs, or gallops appreciated. GI: Abdomen is soft, nondistended, nontender to palpation. Bowel sounds present. MUSCULOSKELETAL: Strength is 5/5 throughout. No evidence of any muscle deficits on examination. NEUROLOGIC: Unable to assess. The patient has baseline dementia. SKIN: Intact. Warm to touch. Good cap refill. PSYCHIATRIC: At baseline. EXTREMITIES: No edema. Good range of motion throughout. LABORATORY DATA: Show her white count of 11, hemoglobin 12, hematocrit 42, and platelets of 153. Chemistry; sodium was 157, down from 162; potassium 3.5; chloride 122; bicarbonate 26; anion gap of 12; BUN is 87, downtrending from 102; creatinine is 2.0, downtrending from 3; glucose is 116; calcium is 9.1; phosphorus is 3.1; magnesium is 2.1. LFTs within normal range. Troponins are all negative. Albumin 3.1. LDL is 56. MICROBIOLOGY: Blood cultures, no growth. Urine cultures, no growth. IMAGING STUDIES: Chest x-ray this morning shows emphysematous lungs without evidence of pneumonia IMPRESSION: 1. Severe dehydration. 2. Hypernatremia secondary to dehydration. 3. Acute kidney injury with elevated BUN secondary to dehydration. PLAN: At this time, we will go ahead and decrease D5W to 75 mL/h. Order a stat sodium level. Her creatinine and her electrolytes are downtrending. Replace electrolytes accordingly. All medications are seem to be renally dosed appropriate. Notify nursing staff to collect stat sodium. MD NOREEN Quintana/TERESA /[id number]
[2020-02-23] MEDS: CEFEPIME 1GM/NS 0.9% 50 ML 50 ML IV SCH (22:15)
[2020-02-23 23:39] LABS: CREATINE KINASE MB 2.6 ng/mL (0-5.0)
[2020-02-24] VITALS (9 sets, daily range): BP systolic 99–160; BP diastolic 58–80
--- NOTE | 2020-02-24 00:23 | Progress Note ---
DATE: 02/23/2020 SUBJECTIVE: The patient was seen on February 23, 2020. The patient was admitted to the hospital in view of altered mental status and found to have severe dehydration and hypernatremia. The patient's sodium was quite elevated on admission on 02/22/20 was 162. The patient is being treated for suspected UTI and as far as urine culture is concerned, so far no growth for the last 18 to 24 hours and blood cultures have been negative as well. The patient is status post PEG tube placement and has been unable to eat. She follow commands. She does have history of multiple medical problems including history of CVA, Parkinson disorder, hypertension, gastroesophageal reflux disease, and hyperlipidemia. OBJECTIVE: GENERAL: The patient is alert and oriented to person, not to time and place. She is in no distress at this time. VITAL SIGNS: Blood pressure 106/59, respirations 20, pulse 72, and temperature 96.4. She is fully alert. HEENT: Head is normocephalic and atraumatic. NECK: Supple. No JVD. LUNGS: Clear to auscultation. HEART: Regular rate and rhythm. ABDOMEN: Soft and nontender. EXTREMITIES: No edema. NEURO: Nonfocal. LABORATORY DATA: CBC as of February 23, 2020, revealed hemoglobin 12.9, white blood cell count 11.02, and platelet count 153,000. Chem profile on admission revealed sodium 162, significantly elevated. Lab data disclosed. Sodium 162, potassium 4.1, chloride 117, CO2 28, BUN 102, and creatinine 3.00. PLAN: Continue present care as she has been advised. The patient will be to followed up with the medical problems as mentioned and Nephrology has been consulted. Continue D5 water. Additional recommendations noted. Monitor blood pressure. Monitor kidney function. MD BRICE Chase/TERESA /[id number] MTDHiro
[2020-02-24] MEDS: ASPIRIN 81 MG CHEW TAB PO SCH (05:36)
[2020-02-24] MEDS: DILTIAZEM HCL 30 MG TAB PO SCH ×3 (05:36→21:45)
--- NOTE | 2020-02-24 08:30 | NUR ---
PT RESTING IN BED. RESP EVEN WITHOUT DISTRESS. NO SIGNS OF DISCOMFORT.
[2020-02-24] MEDS: HEPARIN SOD (PORCINE) 5,000 UNIT/ML VIAL SC SCH ×2 (09:00→21:45)
[2020-02-24] MEDS: FAMOTIDINE 20 MG TAB PO SCH ×2 (09:08→16:40)
[2020-02-24] MEDS: FERROUS SULFATE 325 MG TAB PO SCH ×2 (09:08→16:40)
[2020-02-24] MEDS: MEMANTINE 10 MG TAB PO SCH (09:08)
[2020-02-24] MEDS: DOXYCYCLINE 100MG/NS 100ML 100 ML IV SCH ×2 (10:15→23:08)
--- NOTE | 2020-02-24 10:20 | NUR ---
Pt. expressed no spiritual or emotional concerns at this time. Metal Roofing Mechanic provided hospitality and information on how to reach an/ssn 2 4 operator, if needed. No need to follow at this time. LILIAN CUADRA Metal Roofing Mechanic Spiritual Care Department O: [phone]
--- NOTE | 2020-02-24 11:00 | NUR ---
AM CARE GIVEN. PT TOLERATES DIET WELL EATS ALL OF HER MEALS WITH NO PROBLEMS SWALLOWING. HAS A GOOD APPETITE.
[2020-02-24 13:02] LABS: ANION GAP 11.4 mmol/L (8-16); CREATININE, SERUM 1.18 mg/dL (0.57-1.11); POTASSIUM 3.4 mmol/L (3.5-5.1)
--- NOTE | 2020-02-24 14:00 | NUR ---
PATIENT'S DAUGHTER, SHAE, CALLED TO CHECK ON HER.
[2020-02-24] MEDS: DEXTROSE 5% 1,000 ML IV SCH (14:48)
--- NOTE | 2020-02-24 17:00 | NUR ---
PATIENT'S DAUGHTER, RIYA GARCIA CALLED, UPDATE GIVEN ON PTS STATUS.
--- NOTE | 2020-02-24 19:05 | NUR ---
RECEIVED REPORT FROM PREVIOUS NURSE. CALL LIGHT WITHIN REACH. PATIENT IN BED.
--- NOTE | 2020-02-24 20:50 | NUR ---
PATIENT'S DAUGHTER, ISAIAH WHO IS THE POA ASKED IF WE CAN DISCONNECT THE PATIENT'S PHONE IN HIS ROOM BECAUSE OTHER FAMILY MEMBERS WILL CALL, DISTURB HIM, AND GET HIM ANGRY. SHE SAID SHE ONLY WANTS INFORMATION GIVEN TO ISAIAH, PEPE OR LAUREN (MOSTLY) WHO WILL TELL THE OTHER MEMBERS OF THE FAMILY. ISAIAH MENTIONED OTHER FAMILY MEMBERS MAY ACT LIKE LAUREN SO THE FAMILY MEMBER WILL GIVE THE CODE 4374 TO GET INFORMATION ABOUT THE PATIENT. SO ONLY INFORMATION BE GIVEN TO THOSE WHO KNOW THE CODE. Addendum: 02/26/20 at 0240 by Sameera Nj RN DISCARD NOTE.
--- NOTE | 2020-02-24 21:06 | Progress Note ---
DATE: 02/24/2020 Nephrology Progress Note SUBJECTIVE: The patient is much more alert today on examination. PHYSICAL EXAMINATION: VITAL SIGNS: Temperature 97.7, pulse 97, respiratory rate is 18, blood pressure was 99/72, pulse ox 97% on room air. GENERAL: No acute distress. Alert and oriented x3. Cooperative on examination. HEENT: Head is normocephalic and atraumatic. Eyes; pupils are equal, round, and reactive to light bilaterally. Extraocular movements intact bilaterally. Throat; no evidence of erythema or exudates in the posterior pharynx. She has poor dentition. NECK: Supple. Good range of motion. PULMONARY: Clear to auscultation bilaterally. No wheezing, rales, or rhonchi. No crackles appreciated. CARDIOVASCULAR: Positive S1 and S2. No murmurs, rubs, or gallops appreciated. ABDOMEN: Soft, nondistended, and nontender to palpation. Bowel sounds are present. MUSCULOSKELETAL: Strength is 5/5 throughout. No evidence of any muscle deficits on examination. No weakness appreciated. NEUROLOGIC: Cranial nerves II through XII grossly intact. No evidence of any neurological deficits on exam. SKIN: Intact. Warm to touch. Good cap refill. PSYCHIATRIC: Normal affect and mood. EXTREMITIES: No edema. Good range of motion throughout. LABORATORY FINDINGS: Show white count 11, hemoglobin 12, hematocrit 42, and platelets of 153. Chemistry; sodium down trending to 150, potassium 3.4, chloride 117, bicarb 25, anion gap of 11, BUN is 46, creatinine is 1.18. IMAGING STUDIES: None. MICROBIOLOGY: All negative. IMPRESSION: 1. Severe dehydration. 2. Hypernatremia secondary to dehydration. 3. Acute kidney injury, elevated BUN and creatinine secondary to dehydration. PLAN: At this time, continue with D5W at 75 mL/h. Replace electrolytes accordingly. Get a.m. labs. Creatinine and BUN are down trending appropriately as well as sodium level. Monitor electrolytes closely. MD NOREEN Quintana/MODL /[id number]
[2020-02-24] MEDS: ATORVASTATIN 20 MG TAB PO SCH (21:44)
[2020-02-24] MEDS: MIRTAZAPINE 15 MG TAB PO SCH (21:44)
[2020-02-24] MEDS: CEFEPIME 1GM/NS 0.9% 50 ML 50 ML IV SCH (21:45)
--- NOTE | 2020-02-24 23:59 | NUR ---
SUBJECTIVE The patient was seen and elevated. The patient follow commands. She is not confused. There has been no nausea, no vomiting, no diarrhea. No reported fever chills. She is being followed by renal and sodium level is 150. Kidney function improving. BUN 46, creatinine 1.18, glucose 146. CBC disclosed hemoglobin 12.9 as of 02/23/2020, WBC 11.02. There is no reported chest pain or shortness of breath.. Review of system: Difficult to obtain from patient. Although alert she still seems to be confused. Physical exam: Patient was in no distress. Vital signs: Blood pressure 160/70, respiration 18, pulse 70, temperature 98.0 HEENT: No gross abnormalities noted. Neck: Supple no JVD Lungs: Clear to auscultation Heart: Regular rate and rhythm no murmurs no gallops Abdomen: Soft nontender, no organomegaly, bowel sounds present. Extremities: No cyanosis, clubbing or edema Neuro: No Patient alert oriented to person. Musculoskeletal: No significant deformity or swelling of joints. Psych: Cannot fully evaluated but the patient is calm. Assessment: 1. Sepsis, urinary tract infection 2. Sepsis, pneumonia 3. Hypernatremia, improved. 4. Acute kidney injury 5. Dehydration. 6. Parkinson disorder. 7. Chronic obstructive pulmonary disease. 8. History of CVA. 9. Hypertension. 10. Esophageal reflux disease. 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 12. Dementia. Plan of care: Continue antibiotic as advised. Follow-up chest x-rays. Renal following the patient to recommendations noted. Kidney function improving. Continue IV fluids as advised by renal.
[2020-02-25 03:20] VITALS: BP 163/73
[2020-02-25] MEDS: DILTIAZEM HCL 30 MG TAB PO SCH ×4 (06:10→22:05)
[2020-02-25] MEDS: ASPIRIN 81 MG CHEW TAB PO SCH (06:13)
[2020-02-25 06:18] LABS: BASOPHILS # (AUTO) 0.1 (0.0-0.1); BASOPHILS % 0.7 % (0.0-1.0); EOSINOPHILS # (AUTO) 1.2 (0.0-0.4); EOSINOPHILS % 12.6 % (0.0-6.0); HEMATOCRIT 39.6 % (34.2-44.1); HEMOGLOBIN 12.4 g/dL (12.0-16.0); LYMPHOCYTES # (AUTO) 3.5 (1.0-3.2); LYMPHOCYTES % 35.8 % (18.0-39.1); MEAN CORPUSCULAR HEMOGLOBIN 30.2 pg (28-32); MEAN CORPUSCULAR HGB CONC 31.3 g/dL (31-35); MEAN CORPUSCULAR VOLUME 96.6 fL (81-99); MONOCYTES # (AUTO) 0.8 (0.2-0.8); MONOCYTES % 8.2 % (4.4-11.3); NEUTROPHILS # (AUTO) 4.1 (2.1-6.9); NEUTROPHILS % 42.5 % (38.7-80.0); PLATELET COUNT 141 x10e3/uL (140-360); RED CELL DISTRIBUTION WIDTH 14.5 % (11.7-14.4)
[2020-02-25 06:34] LABS: ANION GAP 11.7 mmol/L (8-16); CALCIUM 9.1 mg/dL (8.4-10.2); CREATININE, SERUM 0.94 mg/dL (0.57-1.11); POTASSIUM 3.7 mmol/L (3.5-5.1)
--- NOTE | 2020-02-25 07:17 | NUR ---
GAVE REPORT TO ONCOMING NURSE. PATIENT IN BED. CALL LIGHT WITHIN REACH.
[2020-02-25 08:00] VITALS: BP_SYST 120; BP_SYST 135; BP_DIAS 80; BP_DIAS 83
[2020-02-25] MEDS: HEPARIN SOD (PORCINE) 5,000 UNIT/ML VIAL SC SCH ×2 (09:00→22:12)
[2020-02-25] MEDS: FERROUS SULFATE 325 MG TAB PO SCH ×2 (09:04→15:39)
[2020-02-25] MEDS: FAMOTIDINE 20 MG TAB PO SCH ×2 (09:04→15:39)
[2020-02-25] MEDS: MEMANTINE 10 MG TAB PO SCH (09:04)
[2020-02-25] MEDS: DEXTROSE 5% 1,000 ML IV SCH (09:08)
[2020-02-25 12:00] VITALS: BP 120/83
[2020-02-25 16:40] VITALS: BP 140/83
--- NOTE | 2020-02-25 18:00 | Progress Note ---
DATE: Medicine Progress Note SUBJECTIVE: The patient is alert and awake on examination. She still has not eaten her lunch today. PHYSICAL EXAMINATION: VITAL SIGNS: Temperature is 98.6, pulse 70, respiration rate 19, blood pressure 130/80, pulse ox 95% on room air. GENERAL: No acute distress. Alert and oriented x1. HEENT: Head is normocephalic and atraumatic. Eyes; pupils are equal, round and reactive to light bilaterally. Extraocular movements intact bilaterally. NECK: Supple. Good range of motion. Throat; no evidence of erythema or exudates in the posterior pharynx. She has poor dentition. PULMONARY: Clear to auscultation bilaterally. No wheezing, rales, or rhonchi. No crackles appreciated. CARDIOVASCULAR: Positive S1 and S2. No murmurs, rubs, or gallops. ABDOMEN: Soft, nondistended, nontender to palpation. Bowel sounds are present. MUSCULOSKELETAL: Unable to assess. Currently baseline dementia. NEUROLOGIC: Baseline dementia. SKIN: Intact. Warm to touch. Good cap refill. PSYCHIATRIC: Baseline dementia. EXTREMITIES: No edema. Good range of motion throughout LABORATORY DATA: Showed white count 9.7, hemoglobin 12, hematocrit 39, and platelets of 141. Chemistry, sodium is 151, potassium 3.7, chloride 116, bicarb 27, anion gap is 11, BUN is 35, creatinine is 0.94. MICROBIOLOGY: None. IMAGING STUDIES: None. IMPRESSION: 1. Severe dehydration. 2. Hypernatremia with sodium level of 151 secondary to dehydration. 3. Acute kidney injury with underlying elevated BUN and creatinine. PLAN: At this time increase D5W to 125 mL/h. Get repeat labs in the morning. Monitor electrolytes and replace them accordingly. MD NOREEN Quintana/MODL /[id number]
--- NOTE | 2020-02-25 19:10 | NUR ---
RECEIVED REPORT FROM PREVIOUS NURSE. CALL LIGHT WITHIN REACH. PATIENT IN BED.
[2020-02-25 20:27] VITALS: BP 140/83
[2020-02-25 20:30] VITALS: BP 177/82
[2020-02-25] MEDS: ATORVASTATIN 20 MG TAB PO SCH ×2 (21:00→22:05)
[2020-02-25] MEDS: MIRTAZAPINE 15 MG TAB PO SCH ×2 (21:00→22:04)
--- NOTE | 2020-02-25 21:20 | NUR ---
PATIENT IS REFUSING VITAL SIGNS BEING TAKEN AND BEING STUCK FOR BLOOD SUGAR. HE SAID HE WILL NOT LET US DO ANYTHING TILL HE GETS HIS PAIN MEDICATION. HE SAID THE TYLENOL IS NOT WORKING AND HE WANTS SOMETHING STRONGER. THE NORCO IS EVERY 6 HOURS AND IT IS TO EARLY FOR THE PATIENT TO GET NORCO. HE SAID HE CAN NOT WAIT 2 HOURS AND WE ARE NOT TAKING CARE OF HIM AND HE WANTS PAIN MEDICATION. CALLED DR. ESCUDERO AND LEFT A MESSAGE FOR HIM. WAITING FOR DR. ESCUDERO TO CALL BACK. Addendum: 02/26/20 at 0336 by Sameera Nj RN DISCARD NOTE
[2020-02-25] MEDS: DOXYCYCLINE HYCLATE TABLET 100 MG TAB PO SCH ×2 (22:00→22:05)
--- NOTE | 2020-02-25 22:00 | NUR ---
PATIENT REFUSING TO HAVE HER SHEETS AND DIAPER CHANGED. SHE IS ALSO REFUSING TO TAKE HER MEDICATION.
[2020-02-25] MEDS: CEFEPIME 1GM/NS 0.9% 50 ML 50 ML IV SCH (22:06)
--- NOTE | 2020-02-25 23:06 | NUR ---
PATIENT SEEN AND EVALUATED
--- NOTE | 2020-02-25 23:06 | NUR ---
02/25/2020 SUBJECTIVE: Mrs. Strauss is a 79-year-old female patient who has been evaluated this day. The patient is in no acute distress. The patient is still confused. The patient has not presented fever, chills, vomiting, diarrhea, melena, hematemesis. There has not been any acute changes. OBJECTIVE: GENERAL: The patient has been alert, in no distress. VITAL SIGNS: Stable. Blood pressure: 131/82, respirations: 16, pulse: 90, temp: is 97.3. HEENT: Head is normocephalic and atraumatic. PERRLA NECK: Supple. No JVD. LUNGS: Clear to auscultation. No rales no rhonchi. HEART: Regular rate and rhythm. No murmurs, no rubs. ABDOMEN: Soft, nontender. BS positive. EXTREMITIES: No edema. Normal range of motion. NEURO: The patient is confused, not talkative. LABORATORY DATA: 02/23/2020 WBC: 11.02 RBC: 4.24 Hemoglobin: 12.9 Hematocrit: 42.2 MCV: 99.5 MCH: 30.4 MCHC: 30.6 RDW: 15.3 Platelet count: 153 Neutrophil: 64% Lymphocytes: 22.3% Monocytes: 9.9% Eosinophils: 3.0% Basophils: 0.5% Neutrophils #: 7.1 Lymphocytes #: 2.5 Monocytes #1.1 Eosinophils #: 1.3 Basophils #: 0.1 Abstract immature Gran (auto): 0.03 02/24/2020 Sodium: 150 Potassium: 3.4 Chloride: 117 Carbon dioxide: 25 Anion gap: 11.4 BUN: 46 Creatinine: 1.18 Estimated GFR: 44 BUN/creatinine ratio: 39 Glucose: 146 Calcium: 9.0 ASSESSMENT: 1. Hypernatremia-improving 2. Acute kidney injury 3. Dehydration 4. Parkinson disorder 5. Possible chronic obstructive pulmonary disease 6. History of cerebrovascular accident 7. Hypertension 8. Gastroesophageal reflux disease 9. Hyperlipidemia 10. Encephalopathy, toxic/metabolic, baseline dementia. 02/24/2020 Blood culture was negative. Sepsis and pneumonia are unlikely at this point. UA was not consistent with UTI. Continue present management. PLAN OF CARE: Continue present care. List of medications noted. Continue IV fluids Monitor electrolytes and replace as needed Monitor sodium closely-improving.
--- NOTE | 2020-02-25 23:06 | NUR ---
PATIENT SEEN AND EVALUATED SEE DICTATION
--- NOTE | 2020-02-25 23:20 | NUR ---
DR. KENDRA TORRES WAS ROUNDING ON THE PATIENT. TOLD THE DOCTOR WHAT WAS GOING ON. HE SAID GIVE HER SEROQUEL 12.5 MG BECAUSE SHE HAS CONFUSION.
--- NOTE | 2020-02-25 23:50 | NUR ---
PATIENT REFUSING VITAL SIGNS AND REFUSING TO BE CHANGED.
[2020-02-26] VITALS (9 sets, daily range): BP systolic 131–196; BP diastolic 70–104
[2020-02-26] MEDS ORDERED: QUETIAPINE FUMARATE 25 MG TAB PO PRN (00:45)
--- NOTE | 2020-02-26 04:43 | NUR ---
PATIENT ASLEEP SO DID VITAL SIGNS ON HER AND WHILE VITALS WERE DONE SHE GOT AGITATED. SHE REFUSED AGAIN TO BE CHANGED
[2020-02-26] MEDS: DILTIAZEM HCL 30 MG TAB PO SCH ×3 (05:01→21:29)
[2020-02-26] MEDS: ASPIRIN 81 MG CHEW TAB PO SCH (05:01)
[2020-02-26 07:07] LABS: ANION GAP 11.2 mmol/L (8-16); BLOOD UREA NITROGEN 24 mg/dL (7-26); BUN/CREATININE RATIO 30 (6-25); CARBON DIOXIDE 26 mmol/L (22-29); CHLORIDE 111 mmol/L (98-107); CREATININE, SERUM 0.81 mg/dL (0.57-1.11); EST GLOMERULAR FILTRATION RATE > 60 ML/MIN (60-); GLUCOSE 100 mg/dL (74-118); POTASSIUM 3.2 mmol/L (3.5-5.1); SODIUM 145 mmol/L (136-145)
--- NOTE | 2020-02-26 07:34 | NUR ---
GAVE REPORT TO ONCOMING NURSE. PATIENT IN BED. CALL LIGHT WITHIN REACH. CLEANED PATIENT FINALLY WITH DAY SHIFT DIRECTOR POST AND PATIENT WAS FIGHTING AND HITTING AND SCATCHING US WHILE CLEANING HER.
[2020-02-26] MEDS: MEMANTINE 10 MG TAB PO SCH (09:00)
[2020-02-26] MEDS: FERROUS SULFATE 325 MG TAB PO SCH ×2 (09:00→17:50)
[2020-02-26] MEDS: FAMOTIDINE 20 MG TAB PO SCH ×2 (09:00→17:50)
[2020-02-26] MEDS: HEPARIN SOD (PORCINE) 5,000 UNIT/ML VIAL SC SCH ×2 (09:00→21:29)
[2020-02-26] MEDS: DOXYCYCLINE HYCLATE TABLET 100 MG TAB PO SCH ×2 (10:00→21:35)
[2020-02-26] MEDS: DEXTROSE 5% 1,000 ML IV SCH (11:18)
[2020-02-26] MEDS ORDERED: POTASSIUM CHLORIDE 20 MEQ TAB CR PO STA (14:40)
--- NOTE | 2020-02-26 16:18 | Progress Note ---
DATE: 02/26/2020 Nephrology Progress Note SUBJECTIVE: The patient is at baseline with no changes. The patient has baseline dementia. PHYSICAL EXAMINATION: VITAL SIGNS: Temperature is 96.4, pulse 80, respiratory rate is 18, and blood pressure 142/70, and pulse ox 95% on room air. GENERAL: Not in acute distress. She is at baseline. She is able to speak few words. HEENT: Head is normocephalic, atraumatic. Eyes; pupils are equal and reactive to light bilaterally. Extraocular movements intact bilaterally. NECK: Supple. Good range of motion. Throat; no evidence of erythema or exudates in the posterior pharynx. She has poor dentition. PULMONARY: Clear to auscultation bilaterally. No wheezing, rales, or rhonchi. No crackles appreciated. CARDIOVASCULAR: Positive S1 and S2. No murmurs, rubs, or gallops appreciated. ABDOMEN: Soft, nondistended, and nontender to palpation. Bowel sounds are present. MUSCULOSKELETAL: Unable to assess. NEUROLOGIC: Unable to assess due to her baseline. SKIN: Intact, warm to touch. Good cap refill. PSYCHIATRIC: At baseline dementia. EXTREMITIES: No edema. Good range of motion throughout. LABORATORY DATA: Showed white count is 9.7, hemoglobin 12, hematocrit 39.6, and platelets of 141. Chemistry; shows sodium 145, potassium 3.2, chloride 111, bicarb 26, anion gap of 11. BUN is 24, creatinine is 0.81, calcium is 9. Urinalysis negative. MICROBIOLOGY: All negative. IMPRESSION: 1. Severe dehydration with hyponatremia. 2. Hyponatremia with a sodium of 145. 3. Acute kidney injury, secondary to dehydration with elevated BUN and creatinine. PLAN: At this time, continue at D5W at 75 mL/h. Get a.m. labs in the morning. We will continue to follow with the consultants with the primary team. Replace electrolytes with potassium today. MD NOREEN Quintana/MODL /[id number]
[2020-02-26] MEDS ORDERED: POTASSIUM CHLORIDE 20 MEQ TAB CR PO ONE (18:30)
--- NOTE | 2020-02-26 19:00 | NUR ---
RECEIVED REPORT FROM PREVIOUS NURSE. CALL LIGHT WITHIN REACH. PATIENT IN BED.
--- NOTE | 2020-02-26 19:30 | NUR ---
Report given to on coming nurse, walking rounds complete.
[2020-02-26] MEDS: ATORVASTATIN 20 MG TAB PO SCH (21:28)
[2020-02-26] MEDS: MIRTAZAPINE 15 MG TAB PO SCH (21:28)
[2020-02-26] MEDS: CEFEPIME 1GM/NS 0.9% 50 ML 50 ML IV SCH (21:35)
[2020-02-27] VITALS (10 sets, daily range): BP systolic 113–164; BP diastolic 63–83
--- NOTE | 2020-02-27 02:04 | Progress Note ---
DATE: 02/26/2020 SUBJECTIVE: The patient was doing fine at the time of evaluation. The patient was in no distress. Has been no reported fever or chills. No chest pain or shortness of breath. Resting comfortable. OBJECTIVE: GENERAL: The patient has been alert, in no distress. VITAL SIGNS: Stable. Blood pressure 131/82, respirations 16, pulse is 90, temp is 97.3. HEENT: Head is normocephalic and atraumatic. NECK: Supple. No JVD. LUNGS: Clear to auscultation. HEART: Regular rate and rhythm. ABDOMEN: Soft, nontender. EXTREMITIES: No edema. NEURO: The patient is confused, not talkative. LABORATORY DATA: Chem profile reveal sodium 145, potassium 3.2, chloride 111, CO2 of 26, BUN 24, creatinine 0.81. ASSESSMENT: 1. Altered mental status, which has persisted. The patient has underlying dementia and previous cerebrovascular accident. 2. Severe dehydration. 3. Hypernatremia. 4. Acute kidney injury, which is resolving. PLAN OF CARE: Continue present care. List of medications noted. MD BRICE Chase/TERESA /[id number] MTDD
[2020-02-27 05:37] LABS: ANION GAP 13.8 mmol/L (8-16); BLOOD UREA NITROGEN 18 mg/dL (7-26); BUN/CREATININE RATIO 22 (6-25); CALCIUM 9.4 mg/dL (8.4-10.2); CARBON DIOXIDE 25 mmol/L (22-29); CHLORIDE 108 mmol/L (98-107); CREATININE, SERUM 0.81 mg/dL (0.57-1.11); EST GLOMERULAR FILTRATION RATE > 60 ML/MIN (60-); GLUCOSE 150 mg/dL (74-118); POTASSIUM 3.8 mmol/L (3.5-5.1); SODIUM 143 mmol/L (136-145)
[2020-02-27] MEDS: DILTIAZEM HCL 30 MG TAB PO SCH ×4 (06:00→22:03)
[2020-02-27] MEDS: ASPIRIN 81 MG CHEW TAB PO SCH ×2 (06:00→06:21)
--- NOTE | 2020-02-27 07:26 | NUR ---
GAVE REPORT TO ONCOMING NURSE. CALL LIGHT WITHIN REACH. PATIENT ASLEEP IN BED. DID BEDSIDE ROUNDING
[2020-02-27] MEDS: MEMANTINE 10 MG TAB PO SCH (09:52)
[2020-02-27] MEDS: FAMOTIDINE 20 MG TAB PO SCH ×2 (09:52→17:00)
[2020-02-27] MEDS: FERROUS SULFATE 325 MG TAB PO SCH ×2 (09:52→17:00)
[2020-02-27] MEDS: HEPARIN SOD (PORCINE) 5,000 UNIT/ML VIAL SC SCH ×2 (10:01→22:01)
--- NOTE | 2020-02-27 10:08 | NUR ---
Received bedside shift report from off going nurse. Patient in stable condition, no s/s of distress noted. No complaints of pain. Telemetry in place and working. Bed alarm in place and working. Bed in lowest position and locked. call light within reach.
[2020-02-27] MEDS: DEXTROSE 5% 1,000 ML IV SCH ×2 (11:05→22:03)
[2020-02-27] MEDS: DOXYCYCLINE HYCLATE TABLET 100 MG TAB PO SCH ×2 (11:05→22:03)
--- NOTE | 2020-02-27 11:56 | NUR ---
Received phone call from pt's daughter Traci [phone] regarding discharge plan. States she wants her mom to return to [facility] when MD discharges her. CM informed her that CM will reach out to Dr. Orellana for plan. CM called Dr. Orellana, who states he will call and talk to pt's daughter. Pt's daughter's contact information was given to MD. Signed choice letter for [facility] placed in front of chart.
--- NOTE | 2020-02-27 16:04 | NUR ---
Spoke with Dr. Orellana. States he spoke with pt's daughter Traci, who is agreeable to have peg tube replaced. Dr. Orellana states that he has already spoke with Dr. Inez Huff. Asked that CM place order for consult in system.
--- NOTE | 2020-02-27 19:00 | NUR ---
Bedside shift report given to oncoming nurse. Patient in stable condition, no s/s of distress. No complaints of pain. Telemetry in place and working. Bed in lowest position and locked. Call light within reach. All personal items within reach. Addendum: 02/27/20 at 2020 by Jamia Swenson RN Bed alarm in place and working.
--- NOTE | 2020-02-27 19:45 | NUR ---
BSSR RECEIVED FROM DANIEL RN AND PRECEPTEE, PATIENT AWAKE ALERT, ORIENTED TO NAME, [place] SPEAKING ALSO, PATIENT IV REPLACED BY PHOEBE VALDEZ AND MYSELF, LAC #20G INSERTED W/O DIFFICULTY USING ASEPTIC TECHNIQUE, POSITIVE BLOOD RETURN, PATIENT TOLERATED ACTIVITY WELL, BRUISING NOTED RAC FROM PREVIOUS POSSIBLE IV INFILTRATION, WARM COMPRESS APPLIED TO AREA, BED IN LOWEST POSITION, CALL LIGHT WITHIN REACH
[2020-02-27] MEDS: MIRTAZAPINE 15 MG TAB PO SCH (21:56)
[2020-02-27] MEDS: ATORVASTATIN 20 MG TAB PO SCH (21:56)
[2020-02-27] MEDS: CEFEPIME 1GM/NS 0.9% 50 ML 50 ML IV SCH (22:03)
--- NOTE | 2020-02-27 22:53 | Progress Note ---
DATE: 02/27/2020 Nephrology Progress Note SUBJECTIVE: The patient is doing much better today. She is much more alert on examination. No overnight events. PHYSICAL EXAMINATION: VITAL SIGNS: Temperature is 98.1, pulse 99, respiratory rate is 18, blood pressure 148/80, and pulse ox 94% on room air. GENERAL: Not in acute distress. She is alert at baseline. HEENT: Head; normocephalic, atraumatic. Eyes; pupils are equal, round, and reactive to light bilaterally. Extraocular movements intact bilaterally. Throat; no evidence of erythema or exudates in the posterior pharynx. Has poor dentition. NECK: Supple. Good range of motion. PULMONARY: Clear to auscultation bilaterally. No wheezing, no rales, no rhonchi, no crackles appreciated. CARDIOVASCULAR: Positive S1 and S2. No murmurs, rubs, or gallops appreciated. ABDOMEN: Soft, nondistended, and nontender to palpation. Bowel sounds present. MUSCULOSKELETAL: Strength is 5/5 throughout. No evidence of any muscle deficits on examination. No weakness appreciated. NEUROLOGIC: Cranial nerves 2 through 12 grossly intact. No evidence of any neurological deficits on exam. SKIN: Intact. Warm to touch. Good cap refill. PSYCHIATRIC: Baseline dementia. EXTREMITIES: No edema. Good range of motion throughout. LABORATORY DATA: Shows CBC white count 9.7, hemoglobin 12, hematocrit 39.6, and platelets 141. Chemistry; sodium 143, potassium 3.8, chloride 108, bicarb 25, anion gap of 13, BUN is 18, and creatinine is 0.81. IMPRESSION: 1. Severe dehydration with hypernatremia. 2. Hypernatremia with a sodium level of now 143. 3. Acute kidney injury secondary to dehydration with elevated BUN and creatinine. PLAN: At this time, sodium level is much improved. Stop D5W. Put on NS at 75 mL/h. A.m. labs. Replace electrolytes. MD NOREEN Quintana/MODL /[id number]
--- NOTE | 2020-02-27 23:00 | NUR ---
NS@75CC/HR STARTED ORDERED
[2020-02-28] VITALS (11 sets, daily range): BP systolic 137–192; BP diastolic 63–92
--- NOTE | 2020-02-28 02:03 | Progress Note ---
DATE: 02/27/2020 SUBJECTIVE: The patient is doing fine at this time. The patient has been in no distress. No nausea, no vomiting. No reported fever or chills. I did speak with the patient's daughter, who wishes PEG tube feedings to be replaced. The patient presented with severe dehydration. She has a poor oral intake. Her sodium is slowly improving . LABORATORY DATA: Today disclosed. Sodium 143, potassium 3.8, chloride 108, BUN 18, creatinine 0.81. The patient on presentation was severely dehydrated with a creatinine of 3.0. Did have acute kidney injury. PLAN: I spoke with Dr. Topher Huff, precast concrete ironworker and the plan is to place a PEG tube. The patient did have dislodged PEG tube. OBJECTIVE: GENERAL: The patient has been alert. Follows on commands. The patient is in no distress. VITAL SIGNS: Her blood pressure 148/80, respirations 18, pulse 99, temperature 98.1. HEENT: Head is normocephalic and atraumatic. NECK: Supple. No JVD. LUNGS: Clear to auscultation. HEART: Regular rate and rhythm. ABDOMEN: Soft, nontender. EXTREMITIES: No edema. NEURO: The patient is not talkative. Moves 4 extremities. LABORATORY DATA: Sodium 143, potassium 3.8, chloride 108, CO2 of 25. BUN 18, creatinine 0.81. CBC disclosed. There is no CBC. ASSESSMENT: 1. Severe dehydration. 2. Acute kidney injury. 3. History of Parkinson's. 4. History of cerebrovascular accident. 5. History of chronic obstructive pulmonary disease. 6. Protein-calorie malnutrition. 7. Dislodge tube feeding. PLAN OF CARE: Continue present therapeutic. Continue IV fluid. D5W has been stopped. Plan to put PEG tube in a.m. This stabilization pertains to February 27, 2020. MD BRICE Chase/TERESA /[id number] MTDHiro
[2020-02-28] MEDS: SODIUM CHLORIDE 0.9% 1000ML 1,000 ML IV SCH ×3 (03:21→22:41)
[2020-02-28] MEDS: ASPIRIN 81 MG CHEW TAB PO SCH (05:22)
[2020-02-28 05:46] LABS: ANION GAP 11.8 mmol/L (8-16); BLOOD UREA NITROGEN 15 mg/dL (7-26); BUN/CREATININE RATIO 19 (6-25); CALCIUM 9.2 mg/dL (8.4-10.2); CARBON DIOXIDE 26 mmol/L (22-29); CHLORIDE 112 mmol/L (98-107); CREATININE, SERUM 0.77 mg/dL (0.57-1.11); EST GLOMERULAR FILTRATION RATE > 60 ML/MIN (60-); GLUCOSE 84 mg/dL (74-118); POTASSIUM 3.8 mmol/L (3.5-5.1); SODIUM 146 mmol/L (136-145)
[2020-02-28] MEDS: DILTIAZEM HCL 30 MG TAB PO SCH ×3 (07:25→21:03)
[2020-02-28] MEDS: HEPARIN SOD (PORCINE) 5,000 UNIT/ML VIAL SC SCH ×2 (09:00→22:40)
[2020-02-28] MEDS: MEMANTINE 10 MG TAB PO SCH (09:00)
[2020-02-28] MEDS: FERROUS SULFATE 325 MG TAB PO SCH ×2 (09:00→16:31)
[2020-02-28] MEDS: FAMOTIDINE 20 MG TAB PO SCH ×2 (09:00→16:31)
[2020-02-28] MEDS: HYDRALAZINE HCL 20 MG/ML VIAL IV PRN (09:03)
[2020-02-28] MEDS: DOXYCYCLINE HYCLATE TABLET 100 MG TAB PO SCH ×2 (10:00→21:04)
--- NOTE | 2020-02-28 10:16 | NUR ---
Patient left the unit at 0830 for EGD and Peg tube placement. left in stable condition, no s/s of distress noted. No complaints of pain. Telemetry in place and working.
--- NOTE | 2020-02-28 10:55 | NUR ---
ST Note: Pt off floor for procedure. Will f/u tomorrow 02/29/20.
--- NOTE | 2020-02-28 11:20 | Operative Report ---
DATE OF PROCEDURE: 02/28/2020 SURGEON: Topher Huff MD PROCEDURE: Esophagogastroduodenoscopy with PEG tube reinsertion. INDICATIONS FOR PROCEDURE: The patient with dementia, G-tube dependent, G-tube dislodged. MEDICATIONS: The patient was done under MAC, please see anesthesiologist's note. PROCEDURE IN DETAIL: With the patient in the supine position, the flexible fiberoptic Olympus gastroscope was introduced into the esophagus under direct visualization without any difficulty. There was some patchy erythema noted in distal esophagus. The scope was then advanced with ease into the stomach traversing a small hiatal hernia. There was some patchy erythema noted in the antrum and the body. Pylorus was of normal contour and shape, it was intubated with ease and the scope was advanced all the way to the second portion of the duodenum. The scope was then withdrawn slowly and mucosa overlying the proximal second portion and duodenal bulb appeared to be within normal limits. The scope was then withdrawn back into the stomach and retroflexed. Mucosa overlying the fundus and cardia appeared to be within normal limits. The scope was then straightened out and utilizing the same old G-tube stoma. PEG tube replacement was carried out in the usual fashion. The scope was subsequently withdrawn after documenting a good positioning of the intragastric bumper. The scope was subsequently withdrawn. The patient tolerated the procedure well. IMPRESSION: 1. Mild distal esophagitis. 2. Small sliding hiatal hernia. 3. Gastritis, mild. 4. PEG tube placement, insertion carried out in the usual fashion through the OG tube stoma. The patient tolerated the procedure well. PLAN: G-tube to drain x24 hours to gravity and a De La O bag then can use. Apply an abdominal binder. Topher Huff MD [facility] [place]/MODL /[id number] cc: Wayne Orellana MD
--- NOTE | 2020-02-28 11:24 | NUR ---
Patient went down to OR @ 0830 for EGD and PEG tube placement. Patient in stable condition, No s/s of distress noted. No pain noted. Telemetry in place and working.
--- NOTE | 2020-02-28 11:27 | NUR ---
Patient arrived back from EGD and PEG place @ 1114. Patient in stable condition, no s/s of distress noted. No complaints of pain. Telemetry in place and working. Bed alarm applied and working. Abdomen binder applied dressing to peg tube clear dry and intact. Bed in lowest position and locked. Call light with in reach.
[2020-02-28] MEDS ORDERED: LIDOCAINE HCL 2% LOCAL INJ 5 ML SDV VIAL INJ ONE (19:30)
[2020-02-28] MEDS ORDERED: PROPOFOL IV EMULSION 10 MG/ML 20 ML VIAL ONE (19:30)
--- NOTE | 2020-02-28 20:02 | NUR ---
Bedside shift report given to oncoming nurse. Patient in stable condition, no s/s of distress. No complaints of pain. Telemetry in place and working. Heel proctors applied. IV fluids infusing. Abdominal binder in place and draining into drainage bag, dressing clear dry and intact. Bed in lowest position and locked. Call light within reach. All personal items within reach.
[2020-02-28] MEDS: MIRTAZAPINE 15 MG TAB PO SCH (21:00)
[2020-02-28] MEDS: ATORVASTATIN 20 MG TAB PO SCH (21:00)
[2020-02-28] MEDS: CEFEPIME 1GM/NS 0.9% 50 ML 50 ML IV SCH (21:02)
--- NOTE | 2020-02-28 21:47 | Progress Note ---
DATE: Nephrology Progress Note SUBJECTIVE: The patient is at baseline with no changes. OBJECTIVE: VITAL SIGNS: She is afebrile, normotensive, respiratory rate is good. GENERAL: She is alert only. She has baseline dementia. HEENT: Head; normocephalic, atraumatic. Eyes; pupils are equal, round, and reactive to light bilaterally. Extraocular movements intact bilaterally. Throat; no evidence of erythema or exudates in the posterior pharynx. Has poor dentition. NECK: Supple. Good range of motion. PULMONARY: Clear to auscultation bilaterally. No wheezing, no rales, no rhonchi, no crackles appreciated. CARDIOVASCULAR: Positive S1 and S2. No murmurs, rubs, or gallops appreciated. ABDOMEN: Soft, nondistended, and nontender to palpation. Bowel sounds present. MUSCULOSKELETAL: Strength is 5/5 throughout. No evidence of any muscle deficits on examination. No weakness appreciated. NEUROLOGIC: Cranial nerve II through XII grossly intact. No evidence of any neurological deficits on exam. SKIN: Intact. Warm to touch. Good cap refill. PSYCHIATRIC: Normal affect and mood. EXTREMITIES: No edema. Good range of motion throughout. LABORATORY DATA: Show sodium 146, potassium 3.8, chloride 112, bicarb 26, anion gap of 11, BUN 15, creatinine is 0.77, calcium 9.2. CBC within normal range. IMPRESSION: 1. Severe dehydration with hypernatremia. 2. Hypernatremia with sodium level now 146. 3. Acute kidney injury secondary to dehydration with elevated BUN and creatinine. PLAN: At this time, she did undergo a PEG tube today. I did put her on NS. We will continue for that until she is able to advance her tube feeds to goal. Once stable, we will discontinue the IV fluids. Continue to monitor very closely. MD NOREEN Quintana/MODL /[id number]
[2020-02-29] VITALS (11 sets, daily range): BP systolic 118–180; BP diastolic 63–85
--- NOTE | 2020-02-29 00:08 | Progress Note ---
DATE: 02/28/2020 SUBJECTIVE: The patient was in no distress and had a PEG tube placed. OBJECTIVE: VITAL SIGNS: Remained stable. Blood pressure somewhat elevated 168/92, pulse 102, temp is 98.3, respirations 18. GENERAL: Physical examination is essentially unchanged. HEENT: Head is normocephalic and atraumatic. NECK: Supple. No JVD. LUNGS: Clear to auscultation. HEART: Regular rhythm. ABDOMEN: Soft, nontender. EXTREMITIES: No edema. LABORATORY DATA: No new lab data. ASSESSMENT: 1. Altered mental status, improved. 2. Severe dehydration. 3. Hypernatremia, resolved. 4. Acute kidney injury, resolved. 5. Status post cerebrovascular accident. 6. History of Parkinson. 7. Status post percutaneous endoscopic gastrostomy tube replacement. PLAN OF CARE: Continue present care. Medications noted. We will proceed to renew tube feeding. MD BRICE Chase/TERESA /[id number] MTDD
[2020-02-29] MEDS: ASPIRIN 81 MG CHEW TAB PO SCH (05:11)
[2020-02-29] MEDS: DILTIAZEM HCL 30 MG TAB PO SCH ×3 (05:12→22:09)
[2020-02-29 05:21] LABS: BASOPHILS # (AUTO) 0.1 (0.0-0.1); EOSINOPHILS # (AUTO) 0.5 (0.0-0.4); HEMATOCRIT 38.8 % (34.2-44.1); HEMOGLOBIN 12.5 g/dL (12.0-16.0); LYMPHOCYTES # (AUTO) 2.3 (1.0-3.2); MEAN CORPUSCULAR HGB CONC 32.2 g/dL (31-35); MEAN CORPUSCULAR VOLUME 93.3 fL (81-99); MONOCYTES # (AUTO) 1.3 (0.2-0.8); NEUTROPHILS # (AUTO) 5.4 (2.1-6.9); PLATELET COUNT 161 x10e3/uL (140-360); RED BLOOD COUNT 4.16 x10e6/uL (3.6-5.1); RED CELL DISTRIBUTION WIDTH 14.3 % (11.7-14.4)
[2020-02-29] MEDS: FERROUS SULFATE 325 MG TAB PO SCH ×2 (05:32→16:30)
[2020-02-29 05:51] LABS: ANION GAP 10.5 mmol/L (8-16); BLOOD UREA NITROGEN 14 mg/dL (7-26); BUN/CREATININE RATIO 19 (6-25); CALCIUM 8.2 mg/dL (8.4-10.2); CARBON DIOXIDE 26 mmol/L (22-29); CHLORIDE 113 mmol/L (98-107); CREATININE, SERUM 0.72 mg/dL (0.57-1.11); EST GLOMERULAR FILTRATION RATE > 60 ML/MIN (60-); GLUCOSE 82 mg/dL (74-118); POTASSIUM 3.5 mmol/L (3.5-5.1); SODIUM 146 mmol/L (136-145)
--- NOTE | 2020-02-29 07:02 | NUR ---
RCD PT AT BED PT IS CONFUSED AND PT RESTING ON BED NO SIGNS OF ANY DISTRESS NOTED IV PATENT BY SALINE FLUSH PEG TUBE CONNECTED TO THE BAG ITS WORKING GOOD BED LOW AND LOCKED CALL LIGHT IN REACH
[2020-02-29] MEDS: HYDRALAZINE HCL 20 MG/ML VIAL IV PRN (07:40)
--- NOTE | 2020-02-29 08:48 | NUR ---
PAGED DR Inez FARRIS REGARDING TUBE FEEDING GOT THE TUBE FEEDING ORDER AND DIETARY CONSULT
[2020-02-29] MEDS: HEPARIN SOD (PORCINE) 5,000 UNIT/ML VIAL SC SCH ×2 (09:00→20:46)
--- NOTE | 2020-02-29 09:30 | NUR ---
FEEDING PUMP IS NOT AVAILABLE NOTIFIED THE FINISH REPAIR WORKER AND NOTIFIED THE DIRECTOR THEY SAID THEY WILL ARRANGE THE PUMP
[2020-02-29] MEDS: SODIUM CHLORIDE 0.9% 1000ML 1,000 ML IV SCH (14:15)
[2020-02-29] MEDS: DOXYCYCLINE HYCLATE TABLET 100 MG TAB PO SCH ×2 (16:30→22:09)
[2020-02-29] MEDS: FAMOTIDINE 20 MG TAB PO SCH ×2 (16:30→17:00)
[2020-02-29] MEDS: MEMANTINE 10 MG TAB PO SCH (16:30)
--- NOTE | 2020-02-29 19:07 | NUR ---
PT RESTING ON BED BED SIDE REPORT GIVEN TO ONCOMING NURSE
--- NOTE | 2020-02-29 19:10 | NUR ---
Received the patient in report.lyeing in the bed and sleeping.jevity 1.2 running 30ml/hr.getting iv fluid tele #[address]stable condition.
[2020-02-29] MEDS: MIRTAZAPINE 15 MG TAB PO SCH (21:45)
[2020-02-29] MEDS: ATORVASTATIN 20 MG TAB PO SCH (21:45)
[2020-02-29] MEDS: CEFEPIME 1GM/NS 0.9% 50 ML 50 ML IV SCH (22:09)
--- NOTE | 2020-02-29 22:16 | Progress Note ---
DATE: Nephrology Progress Note SUBJECTIVE: The patient is doing well with no other complaints at this time. OBJECTIVE: VITAL SIGNS: Temperature is 98.2, pulse is 100, respiratory rate 22, blood pressure 130/71, and pulse ox 96% on room air. GENERAL: Not in acute distress. Alert and oriented x3. Cooperative on examination. HEENT: Head; normocephalic, atraumatic. Eyes; pupils are equal, round, and reactive to light bilaterally. Extraocular movements intact bilaterally. NECK: Supple. Good range of motion. MUSCULOSKELETAL: No evidence of any muscle deficits on examination. No weakness appreciated. NEUROLOGIC: Cranial nerve II through XII grossly intact. No evidence of any neurological deficits on exam. SKIN: Intact. Warm to touch. Good cap refill. PSYCHIATRIC: Normal affect and mood. EXTREMITIES: No edema. Good range of motion throughout. LABORATORY DATA: Show CBC stable. Chemistry reviewed shows sodium is 146, potassium 3.5, chloride is 113, bicarb 26, anion gap of 10, BUN is 14, creatinine is 0.72. Cultures were negative. IMPRESSION: 1. Severe dehydration with hypernatremia. 2. Hypernatremia. Sodium of 146. 3. Acute kidney injury secondary to dehydration with elevated BUN and creatinine. PLAN: At this time, PEG tube is in the process of being inserted. Continue with IV fluids. A.m. labs. Monitor closely. MD NOREEN Quintana/MODL /[id number]
--- NOTE | 2020-02-29 23:56 | NUR ---
is in the unit.patient tolerated the tube feed.residual feed checked.repositioned.purewick draining well.bed locked and in lowest position.phone and call light within reach.
[2020-03-01] VITALS: BP 153/60
--- NOTE | 2020-03-01 01:12 | Progress Note ---
DATE: 02/29/2020 SUBJECTIVE: The patient is doing fine at this time, comfortable. The patient is in no distress. There has been no reported nausea or vomiting. No chest pain or shortness of breath. No fever or chills. OBJECTIVE: GENERAL: The patient has been alert. Follow commands. VITAL SIGNS: Blood pressure 118/68, pulse 103, temperature 98.1, respirations 18, O2 saturation on room air 95%. HEENT: Head is normocephalic and atraumatic. NECK: Supple. No JVD. LUNGS: Clear to auscultation. HEART: Regular rate and rhythm. ABDOMEN: Soft, nontender. PEG tube in place. EXTREMITIES: No edema. LABORATORY DATA: Hemoglobin 12.5, white blood cell count 9.58, platelet count of 151,000. Chem profile reveal sodium 146, potassium 3.5, chloride 113, CO2 23, BUN 14, creatinine 0.72. ASSESSMENT: 1. Altered mental status, improved. 2. Severe dehydration, resolved. 3. Hypernatremia, resolved. 4. Acute kidney injury, resolved. 5. Status post cerebrovascular accident. 6. Status post percutaneous endoscopic gastrostomy tube placement. 7. History of Parkinson. PLAN OF CARE: Continue present care. List of medications reviewed. Continue IV fluids. Follow up labs. MD BRICE Chase/TERESA /[id number] MTDD
[2020-03-01] MEDS: SODIUM CHLORIDE 0.9% 1000ML 1,000 ML IV SCH (03:35)
[2020-03-01 04:00] VITALS: BP 171/83
[2020-03-01] MEDS: HYDRALAZINE HCL 20 MG/ML VIAL IV PRN (05:51)
--- NOTE | 2020-03-01 05:58 | NUR ---
BP noted 171/83.hydralazine 10 mg iv given.jevity is running @30 ml/hr.
[2020-03-01] MEDS: DILTIAZEM HCL 30 MG TAB PO SCH (06:05)
[2020-03-01] MEDS: ASPIRIN 81 MG CHEW TAB PO SCH (06:05)
--- NOTE | 2020-03-01 06:30 | NUR ---
Patient had a small bowelmovement.cleaned diaper changed.stable condition.
--- NOTE | 2020-03-01 07:10 | NUR ---
Bed side shift report given to oncoming rn.stable condition.
[2020-03-01 08:29] VITALS: BP 114/63
--- NOTE | 2020-03-01 08:36 | NUR ---
CALLED DAUGHTER SHAE PERRY [phone] NOTIFIED OF IMM, SIGNED FORM AND FILED IN CHART, LEFT COPY IN ROOM FOR RECORDS
[2020-03-01 09:23] VITALS: BP 114/63
[2020-03-01] MEDS: MEMANTINE 10 MG TAB PO SCH (09:43)
[2020-03-01] MEDS: FERROUS SULFATE 325 MG TAB PO SCH (09:43)
[2020-03-01] MEDS: FAMOTIDINE 20 MG TAB PO SCH (09:43)
[2020-03-01] MEDS: DOXYCYCLINE HYCLATE TABLET 100 MG TAB PO SCH (09:43)
[2020-03-01 12:00] VITALS: BP 110/57
--- NOTE | 2020-03-01 13:52 | NUR ---
[facility] FACILITY DISCHARGE INFORMATION PATIENT HAS BEEN ACCEPTED TO: [facility] [address] [place] [address] ACCEPTING METAL WEATHER STRIPPER: Dustin Stewart ACCEPTING MD: Dr. Orellana ROOM: 102 NURSE CALL REPORT TO: [phone] IMM SIGNED AND OBTAINED (if applicable): yes THE FOLLOWING DOCUMENTS MUST ACCOMPANY PATIENT FOR TRANSFER: copy of chart. transfer MAR COPIED CHART: community center worker RTF: completed and placed with pt's packet at nurse's station [id number] DNR: n/a COURTNEY Armenta and COURTNEY Woodsvine fruit farming supervisor were informed of MOT. Daughter Traci was also notified of acceptance to SNF.
--- NOTE | 2020-03-01 14:19 | NUR ---
REPORT CALLED TO [facility]
[2020-03-01 14:20] VITALS: BP 157/84
--- NOTE | 2020-03-01 14:23 | NUR ---
Nutrition Intervention Note RD Recommendation(s) for Physician: - Rec continuous TF of Osmolite 1.2 via PEG to goal rate of 55 ml/hr (to provide 1584 kcal, 73 gm protein, 1082ml water) - Water flushes of 100mL q 4hr; additional per MD - Check for GI tolerance, daily weight, labs Plan of Care: RD following, monitoring for tolerance and adequacy, TF rec's Nutrition reason for involvement: MD consult - TF RD Assessment (03/01) Following up with this patient. Pt is bedbound and non-verbal with severe dementia. Pt refused PO trial with [employer]IOR [employer]GE[employer]. Currently NPO, + PEG tube with Jevity 1.2@30mL/hr running. Per COURTNEY Armenta, TF is tolerating well. No GI distress noted. Communicated TF goal with COURTNEY Armenta. Plan to d/c to [facility] today. (02/23/20) Chart reviewed. Labs and meds reviewed. Pt is a 79 year old female admitted with confusion, dehydration, hypernatremia, renal failure, UTI. Unable to obtain information from patient due to altered mental status. It is recorded that pt consumed 50% of breakfast this morning. No previous weight history in chart. If PO intake is <50% of meals, recommend to offer Ensure. Will continue to monitor. Principal Problems/Diagnoses: confusion, dehydration, hypernatremia, renal failure, UTI PMH: HTN, COPD, CVA, Parkinsons disorder, nephrolithiasis, GERD, HLD, dementia GI: +PEG, LBM - 03/01 Skin: stage 1 sacral wound Labs: Na 146 H, Cl 113 H, Ca 8.2 L Meds: feosol, pepcid, cardizem IVF: 0.9% saline @50ml/hr Ht: 62 in Wt:121 lb BMI: 22.1 kg/m2 IBW:110 lb Malnutrition Evaluation 02/23/20 Unable to complete assessment at this time. Nutrition Prescription (Diet Order): TF-Jevity 1.2 @20mL/hr Estimated Nutritional Needs: Calories: 1275 - 1530kcal (25-30kcal/kg/d) Weight used: CBW Protein: 51 - 77g (1-1.5g/kg/d) Weight used: CBW Diet Adequacy: Not meeting calorie needs, Not meeting protein needs Tolerance: tolerance pending Diet Education Needs Assessment: Diet education not indicated. Nutrition Care Level: Moderate - TF Nutrition Diagnosis: Inadequate energy and protein intake related to altered mental status currently as evidence by requiring detention EN via PEG. Goal: Patient will meet 75-100% of estimated needs by follow up Progress: N/A Interventions: Tube feeding - Composition, Rate, Route Monitoring/Evaluation: Total energy intake, Total protein intake, Formula/Solution, Weight change Signed: Virginia Desai MS, RD, LD
--- NOTE | 2020-03-01 23:34 | Progress Note ---
DATE: Nephrology Progress Note SUBJECTIVE: The patient is at baseline with no changes. No overnight events. PHYSICAL EXAMINATION: VITAL SIGNS: Temperature is 98.6, pulse 96, respiratory rate is 16, blood pressure 151/84, and pulse ox 100% on room air. LABORATORY DATA: Show CBC stable. Chemistry reviewed, shows sodium 146, potassium 3.5, chloride 113, bicarb 26, anion gap of 10, BUN is 14, creatinine is 0.72, and calcium is 8.2. All cultures were found to be negative. IMAGING STUDIES: None. IMPRESSION: 1. Severe dehydration with hypernatremia. 2. Hypernatremia with mild sodium elevation of 146. 3. Acute kidney injury secondary to dehydration with elevated BUN and creatinine, resolved. PLAN: At this time, continue with IV fluid hydration. She will be discharged to nursing home facility today. MD NOREEN Quintana/TERESA /[id number]
== END 2020-03-01 15:33 | DRG 871 ==
LOC: ER 14:58 → ERHOLD 17:24 → MED/SURG2 18:33
PROVIDERS: ADMIT Internal Medicine; ATTEND Internal Medicine
PROC: 0DB78ZX Excision of Stomach, Pylorus, Via Natural or Artificial Opening Endoscopic, Diagnostic (ICD-10-PCS; 2020-02-28)
PROC: 0DH68UZ Insertion of Feeding Device into Stomach, Via Natural or Artificial Opening Endoscopic (ICD-10-PCS; principal; 2020-02-28 12:00)
DX: A41.9 Sepsis, unspecified organism (principal); G93.41 Metabolic encephalopathy; J18.9 Pneumonia, unspecified organism; E87.0 Hyperosmolality and hypernatremia; J44.0 Chronic obstructive pulmonary disease with (acute) lower respiratory infection; N17.9 Acute kidney failure, unspecified; N39.0 Urinary tract infection, site not specified; I10 Essential (primary) hypertension; R65.20 Severe sepsis without septic shock; G20 Parkinson's disease; K21.9 Gastro-esophageal reflux disease without esophagitis; E78.5 Hyperlipidemia, unspecified; I87.2 Venous insufficiency (chronic) (peripheral); E83.52 Hypercalcemia; Z86.73 Personal history of transient ischemic attack (TIA), and cerebral infarction without residual deficits; E86.0 Dehydration; F03.90 Unspecified dementia, unspecified severity, without behavioral disturbance, psychotic disturbance, mood disturbance, and anxiety; K29.70 Gastritis, unspecified, without bleeding; K44.9 Diaphragmatic hernia without obstruction or gangrene; L89.151 Pressure ulcer of sacral region, stage 1
CPT/HCPCS: 36415; 70450; 71045; 80048; 80053; 80061; 81001; 82550; 82553; 83735; 83880; 84100; 84295; 84484; 85007; 85025; 85027; 85610; 85730; 87040; 87086; 93005; 96360; 99251; 99284; J0360; J0692; J0696; J1644; J2001; J3411; J7030; J7070